=== PATIENT | female | born 1985 | race Two or more races ===

== ENCOUNTER 2024-10-10 22:14 | Inpatient (IN) | payer MEDICAID, SELFPAY ==
[2024-10-10 22:16] VITALS: BMI 26.9
[2024-10-10 23:44] VITALS: BP 130/81; PULSE 86; RESP 17; TEMP 36.5; O2SAT 96
[2024-10-11] VITALS (23 sets, daily range): BP systolic 90–138; BP diastolic 54–88; PULSE 76–113; RESP 14–20; TEMP 36.4–37.5; O2SAT 96–100
[2024-10-11 00:35] LABS: Basophils # (Auto) 0.1 Thou/mm3 (0.0-0.2); Basophils % (Auto) 0 % (0-2.5); Eosinophils # (Auto) 0.1 Thou/mm3 (0.0-0.5); Eosinophils % (Auto) 1 % (0-10); Immature Granulocytes % (Auto) 1 % (0-0); Immature Granulocytes Auto 0.09 Thou/mm3 (0.00-0.00); Lymphocytes # (Auto) 3.5 Thou/mm3 (1.0-4.8); Lymphocytes % (Auto) 20 % (10-50); Mean Corpuscular HGB Conc 31.5 g/dl (31.0-37.0); Mean Corpuscular Hemoglobin 25.5 pg (25.0-35.0); Mean Corpuscular Volume 81 fL (80-100); Monocytes # (Auto) 1.1 Thou/mm3 (0.0-0.8); Monocytes % (Auto) 6 % (0-12); Neutrophils % (Auto) 73 % (37-80); Nucleated Red Blood Cell # 0.02 Thou/mm3 (0.00-0.00); Nucleated Red Blood Cell % 0 /100 WBC (0); Platelet Count 342 Thou/mm3 (140-440); RDW Standard Deviation 54.2 fL (36.4-46.3); Red Blood Count 1.84 Miln/mm3 (4.00-5.20); White Blood Count 17.9 Thou/mm3 (3.6-11.0)
[2024-10-11 00:50] LABS: Alanine Aminotransferase 13 U/L (10-49); Albumin, Serum 2.7 gm/dL (3.5-5.0); Albumin/Globulin Ratio 0.8 (1.2-2.2); Alkaline Phosphatase 93 U/L (46-116); Anion Gap 11 (7-16); Aspartate Amino Transferase 39 U/L (0-34); BUN/Creatinine Ratio 6 Ratio (12-20); Bilirubin,Total 1.1 mg/dL (0.3-1.2); Blood Urea Nitrogen < 5 mg/dL (9-23); Calcium 7.6 mg/dL (8.3-10.6); Calcium (Corrected) 8.6 mg/dL (8.5-10.1); Carbon Dioxide 26.3 mMol/L (20.0-31.0); Chloride 97 mMol/L (98-107); Creatinine (Component) 0.8 mg/dL (0.6-1.3); Estimated Creatinine Clearance 97.6 mL/min (>60); Globulin 3.6 gm/dL (2.3-3.5); Glucose 117 mg/dL (74-106); Osmolality,Calculated 266 (275-295); Potassium 4.2 mMol/L (3.4-5.1); Sodium 134 mMol/L (136-145); Total Protein 6.3 gm/dL (5.7-8.2); eGFR > 60 See Note
[2024-10-11 00:57] LABS: Hemoglobin 4.7 g/dL (12.0-16.0)
[2024-10-11 00:58] LABS: Hematocrit 14.9 % (36.0-46.0)
[2024-10-11 01:03] LABS: INR 1.5 (0.9-1.3); Partial Thromboplastin Time 28.4 Seconds (22.0-36.0); Prothrombin Time 16.3 Seconds (9.0-12.2)
[2024-10-11] MEDS: SODIUM CHLORIDE 0.9% 1000 ML 1,000 ML 999 ML IV (01:22)
[2024-10-11 01:52] LABS: HCG Qualitative,Urine Negative
[2024-10-11 01:55] LABS: Alcohol, Blood Medical < 3.0 mg/dL (0-10.0)
[2024-10-11 03:17] LABS: Amphetamine/Methamp Scrn,U Negative (Negative); Barbiturate Screen,Urine Negative (Negative); Benzodiazepines Screen,Urine Negative (Negative); Benzoylecgonine Screen, Ur Negative (Negative); Fentanyl Screen,Urine Negative (Negative); Opiate Screen,Urine Positive (Negative); THC Screen,Urine Positive (Negative)
[2024-10-11 04:05] LABS: Path Review Blood Smear Sent to Pathologist
--- NOTE | 2024-10-11 05:28 | EDNOTE_ITS ---
ED Dizzyness RME/HPI General Chief Complaint: General Adult/Misc Complain Stated Complaint: SENT BY [facility] FOR FINGERSTICK HBG 4.0 Time Seen by Provider: 10/10/24 23:56 Arrival date/time: 10/10/24 22:14 38F with history of alcoholic cirrhosis and anemia 2/2 alcohol, drug use, GI bleed, and heavy menstrual cycles presents to ED with weakness, dizziness, and vague ab pain. Normal intake/output. Limitations: no limitations Related Data Previous Rx's ?Medication ?Instructions ?Recorded baclofen 20 mg tablet 20 mg PO BID PRN Muscle Spas ms 30 10/09/23 days #60 tabs ferrous sulfate 325 mg (65 mg 325 mg PO BID 30 days #6 0 tabs 10/09/23 iron) tablet (iron) folic acid 1 mg tablet 1 mg PO BID 30 days #60 tabs 10/09/23 lidocaine 5 % topical cream 1 applic top QDAY PRN hemo rrhoids 10/09/23 (RectaSmoothe) 30 days #1 tube lidocaine 5 % topical patch 1 patch top QDAY PRN abdom inal 10/09/23 pain 30 days #30 ea melatonin 1 mg tablet 0.5 mg (1/2 x 1 mg) PO HS AR N 10/09/23 sleep #15 tabs nystatin 100,000 unit/mL oral 5 ml PO TID 30 days #450 mL 10/09/23 suspension thiamine mononitrate (vit B1) 100 100 mg PO BID 1 inge h #60 tabs 10/09/23 mg tablet pantoprazole 40 mg tablet,delayed 40 mg PO QDAY 60 day s #60 tabs 10/10/23 release phenylephrine 0.25 %-mineral oil 1 applic AR QDAY PRN hemorrhoids 10/10/23 14 %-petrolatm 74.9 % rectal #57 grams ointment (Hemorrhoidal(phenyleph-min oil-petrolat)) simethicone 125 mg capsule 125 mg PO QDAY PRN abdomina l 10/10/23 distention 2 weeks #14 caps Allergies Allergy/AdvReac Type Severity Reaction Status Date / Time No Known Allergies Allergy Verified 10/10/24 22:15 Review of Systems Review of Systems Systems Reviewed: All systems reviewed, normal except as documented Constitutional Constitutional: Reports system reviewed and no additional complaints, except as documented, Denies fever(s), Denies headache(s) and Reports weakness ENT Ears, Nose, Mouth, and Throat: Reports as per HPI, Denies disequilibrium, Denies headache(s) and Reports vertigo Cardiovascular Cardiovascular: Reports system reviewed and no additional complaints, except as documented, Denies chest pain and Denies dyspnea Respiratory Respiratory: Reports system reviewed and no additional complaints, except as documented, Denies cough and Denies dyspnea Gastrointestinal Gastrointestinal: Reports system reviewed and no additional complaints, except as documented, Reports as per HPI, Reports abdominal pain, Denies nausea and Denies vomiting Neurologic Neurologic: Reports system reviewed and no additional complaints, except as documented, Reports as per HPI, Denies confusion, Denies disequilibrium, Denies headache(s), Reports vertigo and Reports weakness Psychiatric Psychiatric: Denies confusion Past Medical History Past Medical History NEUROLOGIC: Positive Migraine; Negative Neurological Disorders or Seizures CARDIAC: Positive Hypertension; Negative Cardiac Disorders, Angina, Atherosclerotic Heart Disease, Aneurysm or Congestive Heart Failure RESPIRATORY: Negative Chronic Obstructive Pulmonary Disease (COPD) or Asthma GASTROINTESTINAL: Positive Cirrhosis; Negative Gastrointestinal Disorders GENITOURINARY: Negative Genitourinary Disorders or Renal Disease MUSCULOSKELETAL: Negative Musculoskeletal Disorders ENDOCRINE: Negative Endocrine Disorders, Diabetes Mellitus Type 1 or Diabetes Mellitus Type 2 HEMATOLOGIC: Positive Anemia; Negative Sickle Cell Disease PSYCHO/SOCIAL: Positive Anxiety OTHER HISTORY: Positive Autoimmune Disease and Blood Transfusions; Negative Blood Transfusion Reaction, Anesthesia Reactions, Clostridium Difficile or Cancer Family History FAMILY HISTORY: Positive Family Cancer; Negative Family Psychiatric Problems, Family Respiratory Disorders, Family Cardiac Disorders or Family Gastrointestinal Problems Social History SMOKING STATUS: Never smoker SECOND HAND EXPOSURE: No SUBSTANCE USE: marijuana ED Exam General Limitations: Present no limitations General appearance: Present alert and in no apparent distress Head Head exam: Present atraumatic Eye Eye exam: Present normal appearance, PERRL and EOMI ENT ENT exam: Present normal exam, normal oropharynx and mucous membranes moist Neck Neck exam: Present normal inspection, full ROM and trachea midline Chest Chest inspection: Present normal inspection and symmetric chest wall rise Respiratory Respiratory exam: Present normal lung sounds bilaterally Cardiovascular Cardiovascular exam: Present regular rate, normal rhythm and normal heart sounds Abdominal Exam Abdominal exam: Present soft and normal bowel sounds Extremities Exam Extremities exam: Present normal inspection and full ROM Back Exam Back exam: Present normal inspection and full ROM Neurological Exam Neurological exam: Present alert, oriented X3 and CN II-XII intact Psychiatric Psychiatric exam: Present normal affect and normal mood Skin Skin exam: Present warm, dry, intact and normal color Course Quality Measures none Orders Category Date Time Status COVID-19 Screening Questionnaire NOW Care 10/11/24 04:47 Active Decision to Admit X1 Care 10/11/24 04:47 Completed Insert IV NOW Care 10/11/24 01:00 Active Occult Blood,Stool (Nursing) NOW Care 10/11/24 01:24 Active Consult to Gastroenterology Stat Cons 10/11/24 04:46 Ordered Alcohol, Blood Medical Stat Lab 10/11/24 00:19 Completed Antibody Identification Stat Lab 10/11/24 00:19 Results CBC Stat Lab 10/10/24 23:56 Completed CMP [Comprehensive Metabolic Panel] Stat Lab 10/10/24 23:56 Completed Drug Screen,Urine Stat Lab 10/11/24 01:37 Completed HCG Qualitative,Urine Stat Lab 10/11/24 01:37 Completed INR [Prothrombin Time with INR] Stat Lab 10/10/24 23:56 Completed PTT [Partial Thromboplastin Time] Stat Lab 10/10/24 23:56 Completed Path Review Blood Smear Stat Lab 10/11/24 00:19 Completed Type and Screen Stat Lab 10/10/24 23:56 Results prbc [Red Blood Cells] Stat Lab 10/11/24 00:19 Results Octreotide Acet Inj [SandoSTATIN Inj] Med 10/11/24 05:03 Discontinued 50 mcg IV X1 ONE Sodium Chloride 0.9% 1000 ml [Ns] 1,000 ml Med 10/11/24 01:00 Discontinued IV 999 mls/hr Vital Signs Vital signs: Vital Signs Temperature 97.7 F 10/10/24 23:44 Pulse Rate 86 10/10/24 23:44 Respiratory Rate 17 10/10/24 23:44 Blood Pressure 130/81 10/10/24 23:44 Pulse Oximetry (%) 96 10/10/24 23:44 Oxygen Delivery Method Room Air 10/10/24 23:44 O2 at 96% on RA and WNLs Dizziness MDM Narrative MDM Narrative:: 38F with history of alcoholic cirrhosis and anemia 2/2 alcohol, drug use, GI bleed, and heavy menstrual cycles presents to ED with weakness, dizziness, and vague ab pain. Normal intake/output. Physical exam reveals no ab tenderness. Patient is afebrile, calm, and alert. HgB 4.7. CMP mildly low sodium. Stool occult +. Started IVF and 3 units of blood. Spoke to Dr. Wiggins, GI who also recommend octreotide infusion. Spoke to Dr. Rodriguez, IM, who will admit. Patient data External records reviewed:: [facility] previous records Clinical information provided by:: patient Social determinants that could affect healthcare access:: alcohol use Patient has the following chronic illnesses:: history of alcoholic cirrhosis and anemia 2/2 alcohol, drug use, GI bleed, and heavy menstrual cycles How is presenting disease/condition affected by chronic disease/condition?: exacerbated by Evaluation data The following diagnostics were reviewed and interpreted by me:: lab results Lab and/or radiology exams considered but not ordered:: ordered Interpretation Summary: above Medications / Prescriptions Medications or Prescriptions considered but not ordered:: ordered Medication administrations:: Medication Administration History Discontinued Medications Sodium Chloride (Ns) 1,000 mls @ 999 mls/hr IV .Q1H1M ONE Stop: 10/11/24 02:00 Last Infusion: 10/11/24 02:27 Dose: Infused Documented By: Admin: 10/11/24 01:22 Dose: 999 mls/hr Documented By: LUCILA Octreotide Acetate (Octreotide Acet Inj 50 Mcg/Ml Vial) 50 mcg IV X1 ONE Stop: 10/11/24 05:04 above Consultations Consultation(s) initiated? (list below): Yes Diagnosis Dizziness Differential Diagnosis: adverse reaction to drug, benign paroxysmal positional vertigo, orthostatic hypotension, vertebral basilar insufficiency, cerebrovascular accident, acute vestibular neuronitis, transient cerebral ischemia and other (anemia) Most likely diagnosis given after review of the tests above:: anemia Admission Indicated Admission indicated?: indicated Admission Request Was there a request for admission?: Yes Admission Attestation Admission request attestation: Discussed case with [Dr. Rodriguez] from Hospitalist service regarding admission. Discussed patients ED course, exam findings, labs, and radiology results. The Hospitalist [agrees] to accept the patient for admission. Disposition Plan Disposition Plan: Admit Discharge Plan Plan Patient Disposition: Admit Acute Care w/in Hospital Prescriptions/Referrals Prescriptions/Med Rec: No Action baclofen 20 mg tablet 20 mg PO BID PRN (Reason: Muscle Spasms) 30 Days Qty: 60 1RF nystatin 100,000 unit/mL Suspension 5 ml PO TID 30 Days Qty: 450 1RF lidocaine [RectaSmoothe] 5 % Cream 1 applic top QDAY PRN (Reason: hemorrhoids) 30 Days Qty: 1 3RF lidocaine 5 % Adhesive Patch,Medicated 1 patch top QDAY PRN (Reason: abdominal pain) 30 Days Qty: 30 3RF folic acid 1 mg Tablet 1 mg PO BID 30 Days Qty: 60 3RF thiamine mononitrate (vit B1) 100 mg Tablet 100 mg PO BID 30 Days Qty: 60 3RF ferrous sulfate [iron] 325 mg (65 mg iron) Tablet 325 mg PO BID 30 Days Qty: 60 3RF melatonin 1 mg tablet 0.5 mg PO HS PRN (Reason: sleep) Qty: 15 3RF pantoprazole 40 mg tablet,delayed release (DR/EC) 40 mg PO QDAY 60 Days Qty: 60 1RF simethicone 125 mg capsule 125 mg PO QDAY PRN (Reason: abdominal distention) 14 Days Qty: 14 1RF Hemorrhoidal(PE-min oil-gwendolyn) 0.25-14-74.9 % ointment 1 applic AR QDAY PRN (Reason: hemorrhoids) Qty: 57 3RF Referrals: Darrius Faria PA-C [Primary Care Provider] - In 1 week Problem List Clinical Impression: Anemia Patient/Caregiver Discharge Instructions Print Language: Slovenian Stand Alone Forms: Vee Award Info., Patient Portal Info Letter
[2024-10-11] MEDS: OCTREOTIDE ACET INJ 50 mCg/ML VIAL IV (05:37)
--- NOTE | 2024-10-11 05:48 | ESHP_ITS ---
Documentation for date of: 10/11/24 HPI History of Present Illness Chief complaint: Anemia History of present illness: A 37-year-old female with significant past medical history of upper GI bleed secondary to H. pylori, gastritis, anemia post blood transfusions secondary to menorrhagia, alcohol use disorder, alcoholic liver disease presented to the hospital with chief complaints of low hemoglobin noted on labs. Patient reported that she was apparently normal 2 to 3 weeks ago, then started to notice mild dizziness and on and off bleeding noted while having bowel movement. On the day of admission, patient went to see her primary care doctor where she found to have low hemoglobin on fingerstick for which she was followed to the hospital for further evaluation and management. Also reported that she is having mild abdominal pain, mainly in the epigastric and right upper quadrant area especially when she eats meals that have beef in it. Endorsed that she had heavy menstrual period's till last month that stopped as of now and patient is currently on hormonal implant. ED course: - Vitals are stable at the time of admission. - Labs are significant for WBC 17.9, Hb 4.7, INR 1.5, sodium 134, AST 39, albumin 2.7 - Urine tested positive for opiates and marijuana - Patient was started on octreotide drip Past medical history: Upper GI bleed, anemia, blood transfusions, alcohol use disorder, alcoholic liver disease Past surgical history: Appendectomy Social history: 1-2 tall beers every day, stopped 2 weeks ago, smokes marijuana, denies tobacco and other illicit drug abuse Allergies: NKDA Review of Systems Review of Systems Systems Reviewed: All systems reviewed, normal except as documented Past Medical History Past Medical History NEUROLOGIC: Positive Migraine; Negative Neurological Disorders or Seizures CARDIAC: Positive Hypertension; Negative Cardiac Disorders, Angina, Atherosclerotic Heart Disease, Aneurysm or Congestive Heart Failure RESPIRATORY: Negative Chronic Obstructive Pulmonary Disease (COPD) or Asthma GASTROINTESTINAL: Positive Cirrhosis; Negative Gastrointestinal Disorders GENITOURINARY: Negative Genitourinary Disorders or Renal Disease MUSCULOSKELETAL: Negative Musculoskeletal Disorders ENDOCRINE: Negative Endocrine Disorders, Diabetes Mellitus Type 1 or Diabetes Mellitus Type 2 HEMATOLOGIC: Positive Anemia; Negative Sickle Cell Disease PSYCHO/SOCIAL: Positive Anxiety OTHER HISTORY: Positive Autoimmune Disease and Blood Transfusions; Negative Blood Transfusion Reaction, Anesthesia Reactions, Clostridium Difficile or Cancer Family History FAMILY HISTORY: Positive Family Cancer; Negative Family Psychiatric Problems, Family Respiratory Disorders, Family Cardiac Disorders or Family Gastrointestinal Problems Social History SMOKING STATUS: Never smoker SECOND HAND EXPOSURE: No SUBSTANCE USE: marijuana Exam Vital Signs Temp Pulse Resp BP Pulse Ox O2 Del Method 98.4 F 101 H 16 112/79 100 Room Air 10/11/24 05:13 10/11/24 05:13 10/11/24 05:13 10/11/24 05:13 10/11/24 05:13 10/11/24 01:17 Narrative Exam General: Awake. HEENT: Normocephalic, atraumatic, mucous membranes moist. healed rash from acne with erosions on forehead Heart: Regular rate and rhythm, no murmurs. Lungs: Clear to auscultation with no wheezing or crackles. Abdomen: Soft, nondistended, mild tenderness in upper abdomen, positive bowel sounds. ?No guarding or rebound tenderness. Neurologic: Alert and oriented x3, no gross neurological deficit, and patient able to move all 4 extremities. Extremities: No edema. Skin: No rash or ecchymoses. Results: Labs 10/11/24 10:40 10/11/24 08:32 Labs: Short CBC 10/11/24 Range/Units 00:19 WBC 17.9 H (3.6-11.0) Thou/mm3 Hgb 4.7 L* (12.0-16.0) g/dL Hct 14.9 L* (36.0-46.0) % Plt Count 342 (140-440) Thou/mm3 BMP 10/11/24 00:19 Sodium 134 L Potassium 4.2 Chloride 97 L Carbon Dioxide 26.3 BUN < 5 L Creatinine 0.8 Glucose 117 H Calcium 7.6 L Liver Function 10/11/24 Range/Units 00:19 Total Bilirubin 1.1 (0.3-1.2) mg/dL AST 39 H (0-34) U/L ALT 13 (10-49) U/L Alkaline Phosphatase 93 (46-116) U/L Albumin 2.7 L (3.5-5.0) gm/dL Quality Measures Quality Measures none Medications Home Medications and Allergies Allergies Allergy/AdvReac Type Severity Reaction Status Date / Time No Known Allergies Allergy Verified 10/10/24 22:15 Visit Medications Acetaminophen (Acetaminophen 325 Mg Tablet) 650 mg PO Q6H PRN PRN Reason: Fever >101.5 Stop: 11/10/24 05:41 Ondansetron HCl (Ondansetron Inj 2 Mg/Ml Inj 2 Ml) 4 mg IVP Q6H PRN; Protocol PRN Reason: NAUSEA OR VOMITING Stop: 11/10/24 05:41 Pantoprazole Sodium (Pantoprazole Inj 40 Mg Vial) 40 mg IVP QDAY BRIANA Stop: 11/10/24 08:59 Discontinued Medications Sodium Chloride (Ns) 1,000 mls @ 999 mls/hr IV .Q1H1M ONE Stop: 10/11/24 02:00 Last Infusion: 10/11/24 02:27 Dose: Infused Octreotide Acetate (Octreotide Acet Inj 50 Mcg/Ml Vial) 50 mcg IV X1 ONE Stop: 10/11/24 05:04 Last Admin: 10/11/24 05:37 Dose: 50 mcg Assessment & Plan Plan A 37-year-old female with significant past medical history of upper GI bleed secondary to H. pylori, gastritis, anemia post blood transfusions secondary to menorrhagia, alcohol use disorder, alcoholic liver disease presented to the hospital with chief complaints of low hemoglobin noted on labs. # Anemia # Likely multifactorial - menorrhagia [resolved] and GI bleed [gastritis 2/2 Alcohol and NSAIDs versus hemorrhoids] - patient had history of anemia in 2023 for which patient received blood transfusion and was prescribed iron supplementation - Presented with complaints of bleeding per rectum on and off since 2 to 3 months and menorrhagia that resolved 1 month ago - Endorsed that she is not compliant with iron supplements - Mild abdominal pain noted especially after having fatty meals like beef - Also endorsed that she is taking NSAIDs for her back pain - Vitals at the time of admission are stable - labs showed hemoglobin of 4.7 - Tested positive for stool occult blood Plan - 80 Mg of IV pantoprazole is given - Started on octreotide drip -1 PRBC transfusion is given, 2 more PRBC transfusion ordered - Iron panel, vitamin B12 is ordered, follow-up with results - Dr. Wiggins was consulted, will appreciate his recommendations - Patient was kept on n.p.o in view of anticipation of upper GI endoscopy. - Gallbladder ultrasound ordered to rule out gallstones # Leukocytosis - Patient denies burning micturition, shortness of breath, cough - Likely reactive Plan - Follow-up on gallbladder ultrasound and urine analysis # Chronic alcohol use disorder # Alcohol liver disorder - Patient reported that she cut down her alcohol intake to 1-2 tall beer cans per day - Last alcohol drink was 2 weeks ago - Labs showed hypoalbuminemia and mildly elevated AST, INR 1.5 Plan - Recommended to monitor LFTs Hospital Maintenance: Dispo: medsurg DVT ppx: scd GI ppx: Pantoprazole Diet : NPO IV lines: peripheral Code status:FULL Patient plan of care was discussed with the attending physician, Dr. Micahel Leigh, PGY1 Attending Provider Attestation/Addendum I have examined the patient, reviewed labs and imaging findings, discussed the case with the resident(s), and reviewed entered orders. I agree with the plan of care as outlined in this note, with these additional summaries/recommendations: After examination of the patient and review of the clinical data, I feel that this patient needs admission to the hospital for further treatment and evaluation. Patient is a 37-year-old female with a medical history of GI bleed, H. pylori, gastritis, transfusion dependent anemia, menorrhagia, alcohol use disorder, alcohol liver disease who presents to [facility] emergency department on 10/10/2024 with chief complaint of dizziness and blood in stool. Patient seen at bedside. FOBT positive at bedside. Most likely upper GI bleed. Start IV Protonix, IV octreotide, and IV Rocephin. Patient will receive 1 unit PRBCs and follow-up posttransfusion H&H. Gastroenterology consulted, recommendations appreciated. N.p.o. and avoid all chemical anticoagulation. Leukocytosis present and most likely reactive and will monitor for now. Patient appears to have some underlying liver disease from alcohol use with mild coagulopathy which we will monitor now and patient should follow-up outpatient for further workup and management. Patient updated on the plan and in agreement. All questions answered to satisfaction. Dr. Michael MD
--- NOTE | 2024-10-11 05:57 | XR_ITS ---
Examination: Abdomen sonogram, Limited Date and time of exam: October 11, 2024 0713 hours INDICATIONS: Onset of right upper abdominal pain beginning one month ago Technique: Real-time boothe scale transabdominal sonographic images of the upper abdomen obtained. Findings: Gallbladder sludge versus small stones Gallbladder wall 0.52 cm with edema Common bile duct 0.3 cm Pancreatic head 2.2 cm Liver 21.1 cm fatty infiltration irregular contour Normal hepatopedal portal venous flow Patent IVC IMPRESSION: Acute calculus cholecystitis pattern, consider HIDA scan or MRCP follow-up Moderate hepatomegaly fatty liver, suspect primary hepatocellular disease
[2024-10-11] MEDS: PANTOPRAZOLE INJ 40 MG VIAL 80 MG IVP (06:53)
[2024-10-11 07:21] LABS: Ferritin 3 ng/mL (7.3-270.7); Iron 5 mcg/dL (50-170); Percent Iron Saturation 1 % (20-55); Total Iron Binding Capacity 264 mcg/dL (250-425); Unsaturated Iron Binding 259 (225-295)
[2024-10-11 09:16] LABS: Alanine Aminotransferase 14 U/L (10-49); Albumin, Serum 2.7 gm/dL (3.5-5.0); Albumin/Globulin Ratio 0.7 (1.2-2.2); Alkaline Phosphatase 97 U/L (46-116); Anion Gap 13 (7-16); Aspartate Amino Transferase 38 U/L (0-34); BUN/Creatinine Ratio 7 Ratio (12-20); Bilirubin,Total 2.6 mg/dL (0.3-1.2); Blood Urea Nitrogen < 5 mg/dL (9-23); Calcium 7.5 mg/dL (8.3-10.6); Calcium (Corrected) 8.5 mg/dL (8.5-10.1); Carbon Dioxide 25.5 mMol/L (20.0-31.0); Chloride 99 mMol/L (98-107); Creatinine (Component) 0.7 mg/dL (0.6-1.3); Estimated Creatinine Clearance 111.5 mL/min (>60); Globulin 3.7 gm/dL (2.3-3.5); Glucose 111 mg/dL (74-106); Osmolality,Calculated 272 (275-295); Potassium 3.4 mMol/L (3.4-5.1); Sodium 137 mMol/L (136-145); Total Protein 6.4 gm/dL (5.7-8.2); eGFR > 60 See Note
[2024-10-11] MEDS: OCTREOTIDE ACET INJ 1,000 MCG in SODIUM CHLORIDE 0.9% 100 ML 5.1 MCG IV (10:01)
[2024-10-11 11:07] LABS: Basophils # (Auto) 0.1 Thou/mm3 (0.0-0.2); Basophils % (Auto) 1 % (0-2.5); Eosinophils # (Auto) 0.1 Thou/mm3 (0.0-0.5); Eosinophils % (Auto) 1 % (0-10); Hematocrit 22.8 % (36.0-46.0); Immature Granulocytes % (Auto) 1 % (0-0); Immature Granulocytes Auto 0.05 Thou/mm3 (0.00-0.00); Lymphocytes # (Auto) 1.8 Thou/mm3 (1.0-4.8); Lymphocytes % (Auto) 18 % (10-50); Mean Corpuscular HGB Conc 34.6 g/dl (31.0-37.0); Mean Corpuscular Hemoglobin 28.5 pg (25.0-35.0); Mean Corpuscular Volume 82 fL (80-100); Monocytes # (Auto) 0.6 Thou/mm3 (0.0-0.8); Monocytes % (Auto) 6 % (0-12); Neutrophils # (Auto) 7.4 Thou/mm3 (1.8-7.7); Neutrophils % (Auto) 74 % (37-80); Nucleated Red Blood Cell # 0.03 Thou/mm3 (0.00-0.00); Nucleated Red Blood Cell % 0 /100 WBC (0); Platelet Count 235 Thou/mm3 (140-440); RDW Standard Deviation 51.2 fL (36.4-46.3); Red Blood Count 2.77 Miln/mm3 (4.00-5.20)
[2024-10-11 11:08] LABS: Hemoglobin 7.9 g/dL (12.0-16.0)
--- NOTE | 2024-10-11 11:22 | PD.IMCONS ---
HPI Data of Consult Requesting Physician: Blas Rodriguez MD Primary Care Provider: Darrius Faria PA-C Consult Narrative Reason for consult: H/H 4.7/14.9 History of present illness: 38 years old female evaluated request of the ER team as well as the internal medicine team for low hemoglobin hematocrit 4.7 and 14.9 She has been transfused hemoglobin hematocrit is now 7.9 and 22.8 Patient has a history of previous GI bleed and on 10/08/2023 she underwent upper endoscopy that showed esophagitis and gastritis 10/09/2023 she underwent colonoscopy which showed internal hemorrhoids otherwise normal colonoscopy to see Patient has drink alcohol She has been feeling weak and dizzy Has seen off-and-on blood in the stool cc:: cc: Blas Rodriguez MD Review of Systems Review of Systems Systems Reviewed: All systems reviewed, normal except as documented Past Medical History Surgical History OTHER SURGICAL HX: As in the history of present illness Meds Home Medications and Allergies Allergies Allergy/AdvReac Type Severity Reaction Status Date / Time No Known Allergies Allergy Verified 10/10/24 22:15 Exam Vital Signs Temp Pulse Resp BP Pulse Ox O2 Del Method 98.1 F 86 16 111/63 98 Room Air 10/11/24 08:25 10/11/24 08:25 10/11/24 08:25 10/11/24 08:25 10/11/24 08:25 10/11/24 08:25 Constitutional Comments: Alert oriented Routine Respiratory Exam Comments: Normal to auscultation Routine Abdominal Exam Comments: Positive bowel sounds Results Labs 10/11/24 10:40 10/11/24 08:32 Labs: Short CBC 10/11/24 10/11/24 Range/Units 00:19 10:40 WBC 17.9 H 10.0 D (3.6-11.0) Thou/mm3 Hgb 4.7 L* 7.9 L D (12.0-16.0) g/dL Hct 14.9 L* 22.8 L (36.0-46.0) % Plt Count 342 235 D (140-440) Thou/mm3 BMP 10/11/24 10/11/24 00:19 08:32 Sodium 134 L 137 Potassium 4.2 3.4 D Chloride 97 L 99 Carbon Dioxide 26.3 25.5 BUN < 5 L < 5 L Creatinine 0.8 0.7 Glucose 117 H 111 H Calcium 7.6 L 7.5 L Liver Function 10/11/24 10/11/24 Range/Units 00:19 08:32 Total Bilirubin 1.1 2.6 H D (0.3-1.2) mg/dL AST 39 H 38 H (0-34) U/L ALT 13 14 (10-49) U/L Alkaline Phosphatase 93 97 (46-116) U/L Albumin 2.7 L 2.7 L (3.5-5.0) gm/dL Assessment and Plan Additional Assessment & Plan Additional Plan: # Acute posthemorrhagic anemia Continue octreotide infusion Continue IV Protonix Clear liquid diet Consent obtained for fiberoptic esophagogastroduodenoscopy with possible biopsy possible therapeutic intervention under intravenous moderate sedation Thank you very much for the opportunity to participate in care of this patient Other medical problems include # Chronic liver disease secondary to alcohol patient was drinking actively up until 2 weeks ago her favorite drink is ice tea follow-up alcohol
[2024-10-11] MEDS: PIPER/TAZO 3.375 GM PREMIX 3.375 GM/50 ML BAG IV ×2 (11:46→21:16)
[2024-10-11] MEDS: PHYTONADIONE INJ 10 MG/ML AMP IM (11:46)
[2024-10-11] MEDS: POTASSIUM CHL 10 mEq IVPB 10 MEQ/100 ML BAG 100 MEQ IV (11:46)
--- NOTE | 2024-10-11 12:35 | SUR.PHASEI ---
1235: Pt. AAOx4, vitals stable, breathing unlabored, no complaint of pain or nausea, no dressing in place, no active bleed noted, report received from Viviana MAYER.
--- NOTE | 2024-10-11 13:00 | SUR.PHASEI ---
1300: Pt. AAOx4, vitals stable, breathing unlabored, no complaint of pain or nausea, no dressing in place, no active bleed noted, pt. tolerated sips of water well, report given to floor nurse prior to transfer to room 352.
[2024-10-11] MEDS: ACETAMINOPHEN 325 MG TABLET 650 MG PO (14:00)
[2024-10-11] MEDS: PANTOPRAZOLE INJ 40 MG VIAL IVP (14:01)
--- NOTE | 2024-10-11 14:27 | ESPR_ITS ---
<Statement entered by Saravanan Smith MD - 10/12/24 07:26> I discussed with and supervised the internal control consultant physician involved in the care of this patient. Patient assessment and plan was discussed with entire medicine team, including my attending. I agree with the assessment and plan as documented by internal control consultant doctor. Patient care was discussed with my attending physician Dr.Bishwakarma Saravanan Smith, PGY-2 Documentation for date of: 10/11/24 Subjective Subjective Interval history: Patient was seen and examined by the bedside. No acute overnight events. Patient reports feeling better, but reports RUQ pain. Continues to consume alcohol, but a few months ago cut down on the amount of alcohol. Last drink was a few weeks ago. Patient reports that in the last few months she has been experiencing bloody stools. She also reports nausea and vomiting that are provoked by fatty food. GI consulted, she underwent EGD that showed grade I varices, no signs of bleeding. Octreotide drip discontinued. Pending sigmoidoscopy. General surgery was consulted for possible acute cholecystitis. Exam Vital Signs Temp Pulse Resp BP Pulse Ox O2 Del Method O2 Flow Rate 97.8 F 90 19 122/83 100 Room Air 3 10/11/24 12:58 10/11/24 12:58 10/11/24 12:58 10/11/24 12:58 10/11/24 12:58 10/11/24 11:58 10/11/24 12:30 Narrative Exam Gen: Well-developed and well-nourished. HEENT: NCAT, PERRLA, EOMI, MMM, anicteric conjunctivae. CVS: normal S1 and S2. RRR. No M/R/G. Resp: CTA B/L. No rhonchi, rales, crackles or wheezing. Abd: soft, mild RUQ tenderness, distended (due to body habitus). BS+ in all 4 quadrants. MSK: Good ROM in BUE & BLE. No edema or rash. Neuro: CN II-XII grossly intact. Moves all 4 extremities. Alert and oriented x3. Psych: appropriate mood and affect. Objective Labs 10/11/24 10:40 10/11/24 08:32 Labs: Laboratory Results - last 24 hr 10/11/24 10/11/24 10/11/24 00:19 01:37 08:32 WBC 17.9 H RBC 1.84 L* Hgb 4.7 L* Hct 14.9 L* MCV 81 MCH 25.5 MCHC 31.5 RDW Std Deviation 54.2 H Plt Count 342 Neut % (Auto) 73 Lymph % (Auto) 20 [place] % (Auto) 6 Eos % (Auto) 1 Baso % (Auto) 0 Neut # (Auto) 13.0 H Lymph # (Auto) 3.5 [place] # (Auto) 1.1 H Eos # (Auto) 0.1 Baso # (Auto) 0.1 Immature Gran # (Auto) 0.09 H Absolute Nucleated RBC 0.02 H Immature Gran % 1 H Nucleated RBC % 0 Smear Path Review Sent to Pathologist PT 16.3 H INR 1.5 H APTT 28.4 Sodium 134 L 137 Potassium 4.2 3.4 D Chloride 97 L 99 Carbon Dioxide 26.3 25.5 Anion Gap 11 13 BUN < 5 L < 5 L Creatinine 0.8 0.7 Estim Creat Clear Calc 97.6 111.5 eGFR > 60 > 60 BUN/Creatinine Ratio 6 L 7 L Glucose 117 H 111 H Calculated Osmolality 266 L 272 L Calcium 7.6 L 7.5 L Corrected Calcium 8.6 8.5 Iron 5 L TIBC 264 Iron Saturation 1 L Unsat Iron Binding 259 Ferritin 3 L Total Bilirubin 1.1 2.6 H D AST 39 H 38 H ALT 13 14 Alkaline Phosphatase 93 97 Total Protein 6.3 6.4 Albumin 2.7 L 2.7 L Globulin 3.6 H 3.7 H Albumin/Globulin Ratio 0.8 L 0.7 L Urine HCG, Qual Negative Urine Opiates Screen Positive A Urine Fentanyl Screen Negative Ur Barbiturates Screen Negative U Amphetamin/Meth Scrn Negative U Benzodiazepines Scrn Negative U Cocaine Metab Screen Negative U Marijuana (THC) Screen Positive A Ethyl Alcohol < 3.0 Blood Type O Positive Antibody Screen POSITIVE Antibody Identification Cold Antibody Crossmatch See Detail Blood Bank Wristband ID Yes 10/11/24 10:40 WBC 10.0 D RBC 2.77 L Hgb 7.9 L D Hct 22.8 L MCV 82 MCH 28.5 MCHC 34.6 RDW Std Deviation 51.2 H Plt Count 235 D Neut % (Auto) 74 Lymph % (Auto) 18 [place] % (Auto) 6 Eos % (Auto) 1 Baso % (Auto) 1 Neut # (Auto) 7.4 Lymph # (Auto) 1.8 [place] # (Auto) 0.6 Eos # (Auto) 0.1 Baso # (Auto) 0.1 Immature Gran # (Auto) 0.05 H Absolute Nucleated RBC 0.03 H Immature Gran % 1 H Nucleated RBC % 0 Smear Path Review PT INR APTT Sodium Potassium Chloride Carbon Dioxide Anion Gap BUN Creatinine Estim Creat Clear Calc eGFR BUN/Creatinine Ratio Glucose Calculated Osmolality Calcium Corrected Calcium Iron TIBC Iron Saturation Unsat Iron Binding Ferritin Total Bilirubin AST ALT Alkaline Phosphatase Total Protein Albumin Globulin Albumin/Globulin Ratio Urine HCG, Qual Urine Opiates Screen Urine Fentanyl Screen Ur Barbiturates Screen U Amphetamin/Meth Scrn U Benzodiazepines Scrn U Cocaine Metab Screen U Marijuana (THC) Screen Ethyl Alcohol Blood Type Antibody Screen Antibody Identification Crossmatch Blood Bank Wristband ID Quality Measures Quality Measures VTE prophylaxis Assessment & Plan Assessment Current Active Medications: Generic Name Dose Route Start Last Admin Trade Name Freq PRN Reason Stop Dose Admin Acetaminophen 650 mg 10/11/24 05:42 10/11/24 14:00 Acetaminophen 325 Mg Tablet PO 11/10/24 05:41 650 mg Q6H PRN Administration Fever >101.5 Piperacillin/Tazobactam/Dextrose 3.375 gm in 50 mls @ 12.5 mls/hr 10/11/24 22:00 Zosyn IV 10/18/24 21:59 Q8HR BRIANA Lidocaine/Prilocaine 0 gm 10/11/24 09:05 Lidocaine/Prilocaine Cr 5gm 5 Gm Tube TOP 11/10/24 08:59 QDAY PRN for pain control before blood draw Ondansetron HCl 4 mg 10/11/24 05:42 Ondansetron Inj 2 Mg/Ml Inj 2 Ml IVP 11/10/24 05:41 Q6H PRN NAUSEA OR VOMITING Protocol Pantoprazole Sodium 40 mg 10/11/24 13:30 10/11/24 14:01 Pantoprazole Inj 40 Mg Vial IVP 11/10/24 13:29 40 mg QDAY BRIANA Administration Plan The patient is a 37-year-old female with significant past medical history of upper GI bleed secondary to H. pylori, gastritis, anemia post blood transfusions secondary to menorrhagia, alcohol use disorder, alcoholic liver disease presented to the hospital with chief complaints of low hemoglobin noted on labs. #Severe chronic posthemorrhagic anemia #GI bleed #History of menorrhagia #History of alcohol abuse #History of NSAID use #HIstory of hemorrhoids Patient has a history of anemia and in 2023 patient was admitted, received blood transfusion and was prescribed iron supplementation. GI work up then did not reveal the source of bleeding, Patient reports bleeding per rectum on and off since 2 to 3 months and menorrhagia that resolved 1 month ago Endorsed that she is not compliant with iron supplements Mild abdominal pain noted especially after having fatty meals like beef Also endorsed that she is taking NSAIDs for her back pain Vitals at the time of admission are stable In the ED labs showed hemoglobin of 4.7 Tested positive for stool occult blood 10/11/24: GI consulted, she underwent EGD that showed grade I varices, no signs of bleeding. Octreotide drip discontinued, pantoprazole dose decreased tp 40 mg. Pending colonoscopy. Post transfusion H&H: Hgb 7.9, HCT 22.8% Iron panel showed signs of severe iron deficiency. Plan: - Pantoprazole 40 mg qday - Octreotide drip discontinued - 2 unit of pRBC transfused - Vitamin B12 pending - Dr. Wiggins was consulted, appreciate his recommendations - Sigmoidoscopy pending - monitor CBC, transfuse of Hgb <7 #Acute calculous cholecystitis Patient reports RUQ pain, nausea, vomiting after fatty food. Initial labs showed WBC count of 17.9. Bilirubin went up to 2.6 mg/dl. Plan: - Zosyn 3.375 mg q6hr 10/11-current - General surgery is consulted - HIDA scan ordered #Chronic alcohol use disorder #Alcohol liver disorder - Patient reported that she cut down her alcohol intake to 1-2 tall beer cans per day - Last alcohol drink was 2 weeks ago - Labs showed hypoalbuminemia and mildly elevated AST, INR 1.5 Plan: - Will monitor LFTs Health maintenance: FEN: Clear liquid diet DVT prophylaxis: SCDs GI prophylaxis: pantoprazole 40 mg qday Dispo: med tele CODE STATUS: Full code Plan of care discussed with attending Dr. Cuevas, PGY-[address] Smith. Teresa Mitchell MD, PGY 1. Attending Provider Attestation/Addendum I attest that I was physically present for the evaluation, physical examination, lab and imaging review of the patient with the residents. I discussed the case with the residents and agree with the findings and plans of care as documented above. Patient is a 37 years old female with past medical history of upper GI bleed secondary to H. pylori, gastritis and anemia with blood transfusion secondary to menorrhagia, alcohol use disorder, alcoholic liver disease who presented to the ED with complaint of low hemoglobin. Was found to have hemoglobin of 4.7, admitted overnight for acute anemia in setting of menorrhagia, GI bleed. At bedside today, patient complained of abdominal pain mostly around upper abdomen. She also has tenderness around epigastrium. Lab results were significant for WBC of 17.9 last night. Also noted to have worsening bilirubin 2.6 this morning. Gallbladder ultrasound was obtained this morning, shows acute calculus cholecystitis pattern. With elevated WBC, elevated bilirubin and concern for cholecystitis and cholelithiasis, we will obtain general surgery consult and start patient on IV Zosyn. Gastroenterology following, recommended Protonix 40 mg IV daily. Underwent EGD with GI, shows grade 1 esophageal varices, gastric erythema. Patient is planned for sigmoidoscopy. Patient received total of 3 units PRBC transfusion with improvement in hemoglobin to 7.9. La Cuevas MD
--- NOTE | 2024-10-11 14:35 | XR_ITS ---
Examination: SAQIB, hepatobiliary radioisotope scan Gallbladder ejection fraction study. Date and time of exam: October 12, 2024 1418 hours INDICATIONS: Alcoholic cirrhosis history gastrointestinal bleeding abdominal pain Technique: 6 mCi of 99M Hepatolite administered. Serial imaging then obtained from immediate through 60 minutes. 1. mcg selective catheter Kinevac administered for gallbladder ejection fraction study. Findings: Radioisotope activity within the liver is reasonably homogenous. Common bile duct small bowel activity noted Impression: No gallbladder activity noted
--- NOTE | 2024-10-11 14:37 | PD.SURCONS ---
Review of Systems Constitutional Constitutional: Denies headache(s) and Reports weakness ENT Ears, Nose, Mouth, and Throat: Denies disequilibrium, Denies headache(s) and Reports vertigo Neurologic Neurologic: Reports system reviewed and no additional complaints, except as documented, Reports as per HPI, Denies confusion, Denies disequilibrium, Denies headache(s), Reports vertigo and Reports weakness Psychiatric Psychiatric: Denies confusion Meds Home Medications and Allergies Allergies Allergy/AdvReac Type Severity Reaction Status Date / Time No Known Allergies Allergy Verified 10/10/24 22:15 Exam Vital Signs Temp Pulse Resp BP Pulse Ox O2 Del Method O2 Flow Rate 97.8 F 90 19 122/83 100 Room Air 3 10/11/24 12:58 10/11/24 12:58 10/11/24 12:58 10/11/24 12:58 10/11/24 12:58 10/11/24 11:58 10/11/24 12:30 Results Results: Imaging Additional studies: Impression: Patient was seen for acute cholecystitis Assessment & Plan Plan Plan: Patient will get HIDA scan. I am not sure patient has any gallstones but may have sludge. We shall also wait for the anemia to be corrected. Patient does not seem to have any significant pain in the right upper quadrant
[2024-10-11] MEDS: POTASSIUM CHLORIDE 10% 20 MEQ/15 ML UDC 10 MEQ PO (16:17)
[2024-10-11 20:16] LABS: Collection Type, Urine Clean Catch
[2024-10-11 20:35] LABS: Bilirubin,Urine Negative (Negative); Blood,Urine Trace (Negative); Clarity,Urine Turbid (Clear/Hazy); Glucose, Urine Negative (Negative); Ketones,Urine Negative (Negative); Leukocyte Esterase,Urine Positive (Negative); Nitrite,Urine Negative (Negative); PH,Urine 6.5 (5.0-7.0); Protein,Urine Negative (Neg - Trace); RBC,Urine 1 /hpf (0-3); Specific Gravity,Urine 1.017 (1.001-1.035); Squamous Epithelial Cell,Urine 4 /hpf (0-5); Urobilinogen,Urine Negative mg/dL (0.0-1.0); WBC,Urine 504 /hpf (0-5)
[2024-10-11 20:36] LABS: Color,Urine Amber (Lt Yel-Yel)
[2024-10-11] MEDS: HYDROcodone/APAP 5/325 TABLET 1 TAB PO (21:36)
[2024-10-11] MEDS: MELATONIN 3 MG TABLET PO (22:20)
[2024-10-11 23:14] LABS: Vitamin B12 868 pg/mL (211-911)
[2024-10-12] VITALS (18 sets, daily range): BP systolic 98–133; BP diastolic 58–90; PULSE 66–101; RESP 12–18; TEMP 36.1–36.7; O2SAT 93–100
[2024-10-12] MEDS: PIPER/TAZO 3.375 GM PREMIX 3.375 GM/50 ML BAG IV ×3 (05:14→22:10)
[2024-10-12] MEDS: HYDROcodone/APAP 5/325 TABLET 1 TAB PO ×2 (05:21→16:11)
[2024-10-12 05:26] LABS: Basophils # (Auto) 0.1 Thou/mm3 (0.0-0.2); Basophils % (Auto) 1 % (0-2.5); Eosinophils # (Auto) 0.2 Thou/mm3 (0.0-0.5); Eosinophils % (Auto) 3 % (0-10); Hematocrit 22.2 % (36.0-46.0); Immature Granulocytes % (Auto) 0 % (0-0); Immature Granulocytes Auto 0.02 Thou/mm3 (0.00-0.00); Lymphocytes # (Auto) 1.9 Thou/mm3 (1.0-4.8); Lymphocytes % (Auto) 26 % (10-50); Mean Corpuscular HGB Conc 32.4 g/dl (31.0-37.0); Mean Corpuscular Hemoglobin 27.9 pg (25.0-35.0); Mean Corpuscular Volume 86 fL (80-100); Monocytes # (Auto) 0.4 Thou/mm3 (0.0-0.8); Monocytes % (Auto) 5 % (0-12); Neutrophils # (Auto) 4.8 Thou/mm3 (1.8-7.7); Neutrophils % (Auto) 65 % (37-80); Nucleated Red Blood Cell % 0 /100 WBC (0); Platelet Count 214 Thou/mm3 (140-440); RDW Standard Deviation 53.9 fL (36.4-46.3); Red Blood Count 2.58 Miln/mm3 (4.00-5.20); White Blood Count 7.3 Thou/mm3 (3.6-11.0)
[2024-10-12 06:06] LABS: Hemoglobin 7.2 g/dL (12.0-16.0)
[2024-10-12 06:07] LABS: Alanine Aminotransferase 10 U/L (10-49); Albumin, Serum 2.2 gm/dL (3.5-5.0); Albumin/Globulin Ratio 0.7 (1.2-2.2); Alkaline Phosphatase 78 U/L (46-116); Anion Gap 11 (7-16); Aspartate Amino Transferase 32 U/L (0-34); BUN/Creatinine Ratio 6 Ratio (12-20); Bilirubin,Total 2.6 mg/dL (0.3-1.2); Blood Urea Nitrogen < 5 mg/dL (9-23); Calcium 7.3 mg/dL (8.3-10.6); Calcium (Corrected) 8.7 mg/dL (8.5-10.1); Carbon Dioxide 27.4 mMol/L (20.0-31.0); Chloride 104 mMol/L (98-107); Creatinine (Component) 0.8 mg/dL (0.6-1.3); Estimated Creatinine Clearance 98.6 mL/min (>60); Globulin 3.2 gm/dL (2.3-3.5); Glucose 100 mg/dL (74-106); Osmolality,Calculated 280 (275-295); Potassium 3.5 mMol/L (3.4-5.1); Sodium 142 mMol/L (136-145); Total Protein 5.4 gm/dL (5.7-8.2); eGFR > 60 See Note
[2024-10-12] MEDS: PANTOPRAZOLE INJ 40 MG VIAL IVP (09:08)
[2024-10-12] MEDS: POTASSIUM CHLORIDE 20 mEq TABCR PO (09:09)
--- NOTE | 2024-10-12 12:53 | SUR.PHASEI ---
pt arrived to PACU via gurney drowsy but arouses to voice, breathing unlabored, report from Tess MAYER
--- NOTE | 2024-10-12 13:03 | SUR.PHASEI ---
report to Tete MAYER
--- NOTE | 2024-10-12 13:31 | SUR.PHASEI ---
1323 Report given to Kole MAYER, patient meets discharge criteria from recovery, awake and talking with this sports writer, breathing unlabored, vital signs stable, denies pain and nausea 1331 Patient transported via gurney to room 352 without incident, patient requested to use th restroom, MEDICAL LABORATORY TECHNICIAN arrived in patients room and stayed with her to assist her to get back in bed
[2024-10-12] MEDS: LIDOCAINE 5% 1 PATCH TOP (13:51)
--- NOTE | 2024-10-12 16:07 | PC.SS ---
rounding note: Patient pending Hida scan and colonoscopy today
--- NOTE | 2024-10-12 16:12 | ESPR_ITS ---
<Statement entered by Saravanan Smith MD - 10/13/24 07:26> I discussed with and supervised the internet marketing manager physician involved in the care of this patient. Patient assessment and plan was discussed with entire medicine team, including my attending. I agree with the assessment and plan as documented by internet marketing manager doctor. Patient care was discussed with my attending physician Dr. Javi Smith, PGY-2 Documentation for date of: 10/12/24 Subjective Subjective Interval history: Patient seen examined at the bedside, reports improvement in her abdominal pain, weakness. She is pending HIDA scan. Colonoscopy found grade 3 internal hemorrhoids which were banded, no bleeding was found. Hemoglobin levels has improved after the transfusion, surgery continue to follow, no plans for surgery for now. Exam Vital Signs Temp Pulse Resp BP Pulse Ox O2 Del Method O2 Flow Rate 97.4 F 74 16 116/81 96 Room Air 2 10/12/24 13:30 10/12/24 13:30 10/12/24 13:30 10/12/24 13:30 10/12/24 13:30 10/12/24 11:57 10/12/24 13:00 Narrative Exam Gen: Well-developed and well-nourished. HEENT: NCAT, PERRLA, EOMI, MMM, anicteric conjunctivae. CVS: normal S1 and S2. RRR. No M/R/G. Resp: CTA B/L. No rhonchi, rales, crackles or wheezing. Abd: soft, mild RUQ tenderness, distended (due to body habitus). BS+ in all 4 quadrants. MSK: Good ROM in BUE & BLE. No edema or rash. Neuro: CN II-XII grossly intact. Moves all 4 extremities. Alert and oriented x3. Psych: appropriate mood and affect. Objective Labs 10/12/24 04:44 10/12/24 04:44 Labs: Laboratory Results - last 24 hr 10/11/24 10/11/24 10/12/24 00:19 20:02 04:44 WBC 7.3 RBC 2.58 L Hgb 7.2 L Hct 22.2 L MCV 86 MCH 27.9 MCHC 32.4 RDW Std Deviation 53.9 H Plt Count 214 Neut % (Auto) 65 Lymph % (Auto) 26 [place] % (Auto) 5 Eos % (Auto) 3 Baso % (Auto) 1 Neut # (Auto) 4.8 Lymph # (Auto) 1.9 [place] # (Auto) 0.4 Eos # (Auto) 0.2 Baso # (Auto) 0.1 Immature Gran # (Auto) 0.02 H Absolute Nucleated RBC 0.00 Immature Gran % 0 Nucleated RBC % 0 Sodium 142 Potassium 3.5 Chloride 104 Carbon Dioxide 27.4 Anion Gap 11 BUN < 5 L Creatinine 0.8 Estim Creat Clear Calc 98.6 eGFR > 60 BUN/Creatinine Ratio 6 L Glucose 100 Calculated Osmolality 280 Calcium 7.3 L Corrected Calcium 8.7 Total Bilirubin 2.6 H AST 32 ALT 10 Alkaline Phosphatase 78 Total Protein 5.4 L Albumin 2.2 L D Globulin 3.2 Albumin/Globulin Ratio 0.7 L Vitamin B12 868 Ur Collection Type Clean Catch Urine Color Tete Urine Clarity Turbid A Urine pH 6.5 Ur Specific [place] 1.017 Urine Protein Negative Urine Glucose (UA) Negative Urine Ketones Negative Urine Blood Trace Urine Nitrite Negative Urine Bilirubin Negative Urine Urobilinogen (Auto) Negative Ur Leukocyte Esterase Positive Urine RBC 1 Urine WBC 504 H Ur Squamous Epith Cells 4 Urine Bacteria None Quality Measures Quality Measures VTE prophylaxis Assessment & Plan Assessment Current Active Medications: Generic Name Dose Route Start Last Admin Trade Name Freq PRN Reason Stop Dose Admin Acetaminophen 650 mg 10/11/24 16:35 Acetaminophen 325 Mg Tablet PO 11/10/24 05:41 Q6H PRN Fever >100.3 or pain 1-3 Hydrocodone Bitart/Acetaminophen 1 tab 10/11/24 16:34 10/12/24 16:11 Hydrocodone/Apap 5/325 Tablet PO 10/16/24 16:33 1 tab Q8HR PRN Administration Pain 4-10 Piperacillin/Tazobactam/Dextrose 3.375 gm in 50 mls @ 12.5 mls/hr 10/11/24 22:00 10/12/24 13:51 Zosyn IV 10/18/24 21:59 12.5 mls/hr Q8HR BRIANA Administration Lidocaine/Prilocaine 0 gm 10/11/24 09:05 Lidocaine/Prilocaine Cr 5gm 5 Gm Tube TOP 11/10/24 08:59 QDAY PRN for pain control before blood draw Ondansetron HCl 4 mg 10/11/24 05:42 Ondansetron Inj 2 Mg/Ml Inj 2 Ml IVP 11/10/24 05:41 Q6H PRN NAUSEA OR VOMITING Protocol Pantoprazole Sodium 40 mg 10/11/24 13:30 10/12/24 09:08 Pantoprazole Inj 40 Mg Vial IVP 11/10/24 13:29 40 mg QDAY BRIANA Administration Plan The patient is a 37-year-old female with significant past medical history of upper GI bleed secondary to H. pylori, gastritis, anemia post blood transfusions secondary to menorrhagia, alcohol use disorder, alcoholic liver disease presented to the hospital with chief complaints of low hemoglobin noted on labs. #Severe chronic posthemorrhagic anemia #GI bleed #History of menorrhagia #History of alcohol abuse #History of NSAID use #HIstory of hemorrhoids Patient has a history of anemia and in 2023 patient was admitted, received blood transfusion and was prescribed iron supplementation. GI work up then did not reveal the source of bleeding, Patient reports bleeding per rectum on and off since 2 to 3 months and menorrhagia that resolved 1 month ago Endorsed that she is not compliant with iron supplements Mild abdominal pain noted especially after having fatty meals like beef Also endorsed that she is taking NSAIDs for her back pain Vitals at the time of admission are stable In the ED labs showed hemoglobin of 4.7 Tested positive for stool occult blood 10/11/24: GI consulted, she underwent EGD that showed grade I varices, no signs of bleeding. Octreotide drip discontinued, pantoprazole dose decreased tp 40 mg. Pending colonoscopy. Post transfusion H&H: Hgb 7.9, HCT 22.8% Iron panel showed signs of severe iron deficiency. 10/12/24: Colonoscopy showed internal hemorrhoids, they were banded. Vitamin B12 levels are normal Plan: - Pantoprazole 40 mg qday - Dr. Wiggins was consulted, appreciate his recommendations - monitor CBC, transfuse of Hgb <7 - iron supplements on discharge #Acute calculous cholecystitis Patient reports RUQ pain, nausea, vomiting after fatty food. Initial labs showed WBC count of 17.9. Bilirubin went up to 2.6 mg/dl. US showed signs of primary hepatocellular disease. R factor is 1.4 - cholestatic injury. Plan: - Zosyn 3.375 mg q6hr 10/11-current - General surgery is consulted - HIDA scan ordered #Chronic alcohol use disorder #Alcohol liver disorder - Patient reported that she cut down her alcohol intake to 1-2 tall beer cans per day - Last alcohol drink was 2 weeks ago - Labs showed hypoalbuminemia and mildly elevated AST, INR 1.5 R factor Plan: - Will monitor LFTs Health maintenance: FEN: Low sodium diet DVT prophylaxis: SCDs GI prophylaxis: pantoprazole 40 mg qday Dispo: med tele CODE STATUS: Full code Plan of care discussed with attending Dr. Caldwell, PGY-[address] Smith. Teresa Mitchell MD, PGY 1. Attending Provider Attestation/Addendum I have discussed and was present for the essential components of the history, physical examination, diagnosis, and treatment plan with the resident. I agree with the patient's care as documented by the resident and amended herein by me. Matt Caldwell DO. Although this document has been carefully reviewed, there may still be some phonetic and other typographical errors. These errors are purely grammatical due to imperfections in the software program and should not be construed in any way to compromise the substance of the patient's medical care during this visit.
[2024-10-13] VITALS (15 sets, daily range): BP systolic 91–114; BP diastolic 53–76; PULSE 72–96; RESP 16–19; TEMP 36.1–36.5; O2SAT 96–100; BMI 27.6
[2024-10-13] MEDS: HYDROcodone/APAP 5/325 TABLET 1 TAB PO ×3 (00:07→19:12)
[2024-10-13] MEDS: MELATONIN 3 MG TABLET PO ×2 (00:08→20:23)
[2024-10-13 05:41] LABS: Basophils # (Auto) 0.1 Thou/mm3 (0.0-0.2); Basophils % (Auto) 1 % (0-2.5); Eosinophils # (Auto) 0.2 Thou/mm3 (0.0-0.5); Eosinophils % (Auto) 3 % (0-10); Immature Granulocytes % (Auto) 0 % (0-0); Immature Granulocytes Auto 0.03 Thou/mm3 (0.00-0.00); Lymphocytes % (Auto) 25 % (10-50); Mean Corpuscular HGB Conc 33.3 g/dl (31.0-37.0); Mean Corpuscular Hemoglobin 27.8 pg (25.0-35.0); Mean Corpuscular Volume 83 fL (80-100); Monocytes # (Auto) 0.6 Thou/mm3 (0.0-0.8); Monocytes % (Auto) 8 % (0-12); Neutrophils % (Auto) 64 % (37-80); Nucleated Red Blood Cell # 0.02 Thou/mm3 (0.00-0.00); Nucleated Red Blood Cell % 0 /100 WBC (0); Platelet Count 201 Thou/mm3 (140-440); Red Blood Count 2.41 Miln/mm3 (4.00-5.20); White Blood Count 7.9 Thou/mm3 (3.6-11.0)
[2024-10-13] MEDS: PIPER/TAZO 3.375 GM PREMIX 3.375 GM/50 ML BAG IV ×3 (06:00→21:24)
[2024-10-13 06:02] LABS: Hemoglobin 6.7 g/dL (12.0-16.0)
[2024-10-13 06:03] LABS: Hematocrit 20.1 % (36.0-46.0)
[2024-10-13 06:13] LABS: Alanine Aminotransferase 9 U/L (10-49); Albumin, Serum 2.2 gm/dL (3.5-5.0); Albumin/Globulin Ratio 0.7 (1.2-2.2); Alkaline Phosphatase 76 U/L (46-116); Anion Gap 10 (7-16); Aspartate Amino Transferase 29 U/L (0-34); BUN/Creatinine Ratio 6 Ratio (12-20); Bilirubin,Total 1.2 mg/dL (0.3-1.2); Blood Urea Nitrogen < 5 mg/dL (9-23); Calcium 7.3 mg/dL (8.3-10.6); Calcium (Corrected) 8.7 mg/dL (8.5-10.1); Carbon Dioxide 29.2 mMol/L (20.0-31.0); Chloride 105 mMol/L (98-107); Creatinine (Component) 0.8 mg/dL (0.6-1.3); Estimated Creatinine Clearance 98.6 mL/min (>60); Glucose 88 mg/dL (74-106); Osmolality,Calculated 283 (275-295); Potassium 3.4 mMol/L (3.4-5.1); Sodium 144 mMol/L (136-145); Total Protein 5.2 gm/dL (5.7-8.2); eGFR > 60 See Note
[2024-10-13] MEDS: PANTOPRAZOLE INJ 40 MG VIAL IVP (09:24)
--- NOTE | 2024-10-13 11:09 | PC.SS ---
SS met with patient who is alert/oriented. Patient was able to verify demographics. Patient was admitted for anemia. She is independent with ADL's. She resides with her kids. Patient was going to discharge today. However, she had low blood levels. Patient will stay another night to monitor. Possible d/c tomorrow home. PCP: ERICA Nguyen. Last appt. was last week. Transportation: family upon discharge or [employer]. Pharmacy: [facility]. Alt medical decision maker: Ex vat overhauler, Kolby, . D/c plan: home alt medical decision maker:ex boyfriend, Kolby,
--- NOTE | 2024-10-13 11:46 | PD.IMPROG ---
Documentation for date of: 10/13/24 Subjective Subjective Interval history: Hemoglobin hematocrit did drop to 6.3 and 20.1 After transfusion it came up to 8.3 and 24.0 Exam Vital Signs Temp Pulse Resp BP Pulse Ox O2 Del Method O2 Flow Rate 97.5 F 88 19 114/66 98 Room Air 2 10/13/24 09:37 10/13/24 09:37 10/13/24 09:37 10/13/24 09:37 10/13/24 09:37 10/13/24 08:00 10/12/24 13:00 Constitutional Comments: Alert oriented Objective Labs 10/13/24 11:35 10/13/24 05:05 Labs: Laboratory Results - last 24 hr 10/11/24 10/13/24 00:19 05:05 WBC 7.9 RBC 2.41 L Hgb 6.7 L* Hct 20.1 L* MCV 83 MCH 27.8 MCHC 33.3 RDW Std Deviation 55.0 H Plt Count 201 Neut % (Auto) 64 Lymph % (Auto) 25 [place] % (Auto) 8 Eos % (Auto) 3 Baso % (Auto) 1 Neut # (Auto) 5.0 Lymph # (Auto) 2.0 [place] # (Auto) 0.6 Eos # (Auto) 0.2 Baso # (Auto) 0.1 Immature Gran # (Auto) 0.03 H Absolute Nucleated RBC 0.02 H Immature Gran % 0 Nucleated RBC % 0 Sodium 144 Potassium 3.4 Chloride 105 Carbon Dioxide 29.2 Anion Gap 10 BUN < 5 L Creatinine 0.8 Estim Creat Clear Calc 98.6 eGFR > 60 BUN/Creatinine Ratio 6 L Glucose 88 Calculated Osmolality 283 Calcium 7.3 L Corrected Calcium 8.7 Total Bilirubin 1.2 D AST 29 ALT 9 L Alkaline Phosphatase 76 Total Protein 5.2 L Albumin 2.2 L Globulin 3.0 Albumin/Globulin Ratio 0.7 L Blood Type O Positive Antibody Screen POSITIVE Antibody Identification Cold Antibody Crossmatch See Detail Blood Bank Wristband ID Yes Impressions Impression: Acute posthemorrhagic anemia Hemorrhagic gastritis 1+ esophageal varices Large internal hemorrhoids requiring band ligation Admission source may include small bowel lesion such as angiodysplasias Patient should have a capsule endoscopy which can be done as an outpatient for further evaluation and management of this case Assessment & Plan A&P Narrative # Acute posthemorrhagic anemia Continue octreotide infusion Continue IV Protonix Clear liquid diet Consent obtained for fiberoptic esophagogastroduodenoscopy with possible biopsy possible therapeutic intervention under intravenous moderate sedation Thank you very much for the opportunity to participate in care of this patient Other medical problems include # Chronic liver disease secondary to alcohol patient was drinking actively up until 2 weeks ago her favorite drink is ice tea follow-up alcohol Time Spent With Patient Time: Total time spent is greater than 50% in coordination of care (as documented) at patient's floor/unit and/or counseling patient:
[2024-10-13 11:50] LABS: Hematocrit 24.8 % (36.0-46.0)
[2024-10-13 12:51] LABS: Hemoglobin 8.3 g/dL (12.0-16.0)
--- NOTE | 2024-10-13 13:26 | ESPR_ITS ---
<Statement entered by Saravanan Smith MD - 10/14/24 07:19> I discussed with and supervised the collector of internal revenue physician involved in the care of this patient. Patient assessment and plan was discussed with entire medicine team, including my attending. I agree with the assessment and plan as documented by collector of internal revenue doctor. Patient care was discussed with my attending physician Dr. Javi Smith, PGY-2 Documentation for date of: 10/13/24 Subjective Subjective Interval history: Patient is seen and examined at bedside. No acute overnight events. Stated that she is feeling good and did not have any further episodes of bloody bowel movement after the procedure. Patient underwent colonoscopy yesterday and found to have grade 3 internal hemorrhoids which were banded by Dr. Wiggins Patient endorsed that she had bleeding at the time of hemorrhoids banding. Vitals are stable. Physical examination remains unchanged Labs showed hemoglobin 6.7 for which patient was given a unit of blood transfusion. Post transfusion H&H is 8.3 Will start propranolol 10 Mg twice daily in view of grade [address] Sweet, general surgeon was consulted and he recommended no cholecystectomy for now and recommended to follow-up in outpatient basis for cholecystectomy Exam Vital Signs Temp Pulse Resp BP Pulse Ox O2 Del Method O2 Flow Rate 97.2 F 82 16 106/68 97 Room Air 2 10/13/24 12:00 10/13/24 12:00 10/13/24 12:00 10/13/24 12:00 10/13/24 12:00 10/13/24 12:00 10/12/24 13:00 Narrative Exam General: Awake. HEENT: Normocephalic, atraumatic, mucous membranes moist. healed rash from acne with erosions on forehead Heart: Regular rate and rhythm, no murmurs. Lungs: Clear to auscultation with no wheezing or crackles. Abdomen: Soft, nondistended, mild tenderness in right upper abdomen, positive bowel sounds. ?No guarding or rebound tenderness. Neurologic: Alert and oriented x3, no gross neurological deficit, and patient able to move all 4 extremities. Extremities: No edema. Skin: No rash or ecchymoses. Objective Labs 10/14/24 04:25 10/14/24 04:25 Labs: Laboratory Results - last 24 hr 10/11/24 10/13/24 10/13/24 00:19 05:05 11:35 WBC 7.9 RBC 2.41 L Hgb 6.7 L* 8.3 L D Hct 20.1 L* 24.8 L MCV 83 MCH 27.8 MCHC 33.3 RDW Std Deviation 55.0 H Plt Count 201 Neut % (Auto) 64 Lymph % (Auto) 25 Mayes % (Auto) 8 Eos % (Auto) 3 Baso % (Auto) 1 Neut # (Auto) 5.0 Lymph # (Auto) 2.0 Mayes # (Auto) 0.6 Eos # (Auto) 0.2 Baso # (Auto) 0.1 Immature Gran # (Auto) 0.03 H Absolute Nucleated RBC 0.02 H Immature Gran % 0 Nucleated RBC % 0 Sodium 144 Potassium 3.4 Chloride 105 Carbon Dioxide 29.2 Anion Gap 10 BUN < 5 L Creatinine 0.8 Estim Creat Clear Calc 98.6 eGFR > 60 BUN/Creatinine Ratio 6 L Glucose 88 Calculated Osmolality 283 Calcium 7.3 L Corrected Calcium 8.7 Total Bilirubin 1.2 D AST 29 ALT 9 L Alkaline Phosphatase 76 Total Protein 5.2 L Albumin 2.2 L Globulin 3.0 Albumin/Globulin Ratio 0.7 L Blood Type O Positive Antibody Screen POSITIVE Antibody Identification Cold Antibody Crossmatch See Detail Blood Bank Wristband ID Yes Quality Measures Quality Measures VTE prophylaxis Assessment & Plan Assessment Current Active Medications: Generic Name Dose Route Start Last Admin Trade Name Freq PRN Reason Stop Dose Admin Acetaminophen 650 mg 10/11/24 16:35 Acetaminophen 325 Mg Tablet PO 11/10/24 05:41 Q6H PRN Fever >100.3 or pain 1-3 Hydrocodone Bitart/Acetaminophen 1 tab 10/11/24 16:34 10/13/24 09:24 Hydrocodone/Apap 5/325 Tablet PO 10/16/24 16:33 1 tab Q8HR PRN Administration Pain 4-10 Piperacillin/Tazobactam/Dextrose 3.375 gm in 50 mls @ 12.5 mls/hr 10/11/24 22:00 10/13/24 13:20 Zosyn IV 10/18/24 21:59 12.5 mls/hr Q8HR BRIANA Administration Lidocaine/Prilocaine 0 gm 10/11/24 09:05 Lidocaine/Prilocaine Cr 5gm 5 Gm Tube TOP 11/10/24 08:59 QDAY PRN for pain control before blood draw Melatonin 3 mg 10/12/24 23:50 10/13/24 00:08 Melatonin 3 Mg Tablet PO 11/11/24 23:49 3 mg HS BRIANA Administration Ondansetron HCl 4 mg 10/11/24 05:42 Ondansetron Inj 2 Mg/Ml Inj 2 Ml IVP 11/10/24 05:41 Q6H PRN NAUSEA OR VOMITING Protocol Pantoprazole Sodium 40 mg 10/11/24 13:30 10/13/24 09:24 Pantoprazole Inj 40 Mg Vial IVP 11/10/24 13:29 40 mg QDAY BRIANA Administration Plan The patient is a 37-year-old female with significant past medical history of upper GI bleed secondary to H. pylori, gastritis, anemia post blood transfusions secondary to menorrhagia, alcohol use disorder, alcoholic liver disease presented to the hospital with chief complaints of low hemoglobin noted on labs. #Severe chronic posthemorrhagic anemia #GI bleed -grade 1 esophageal varices, grade 3 internal hemorrhoids s/p banding #History of menorrhagia #History of alcohol, NSAID abuse #HIstory of hemorrhoids Patient has a history of anemia and in 2023 patient was admitted, received blood transfusion and was prescribed iron supplementation. GI work up then showed hemorrhoids and esophagitis, gastritis Patient reports bleeding per rectum on and off since 2 to 3 months and menorrhagia that resolved 1 month ago Endorsed that she is not compliant with iron supplements Mild abdominal pain noted especially after having fatty meals like beef Also endorsed that she is taking NSAIDs for her back pain Vitals at the time of admission are stable In the ED labs showed hemoglobin of 4.7 Tested positive for stool occult blood GI consulted, she underwent EGD that showed grade I varices, no signs of bleeding. Octreotide drip discontinued Iron panel showed signs of severe iron deficiency. Colonoscopy showed internal hemorrhoids, they were banded. Vitamin B12 levels are normal Plan: - Pantoprazole 40 mg qday - Dr. Wiggins was consulted, appreciate his recommendations - Monitor CBC, transfuse of Hgb <7 - Started on IV iron transfusion and will start iron supplements on discharge - Started on propranolol 10 Mg p.o. twice daily #? Acute calculous cholecystitis Patient reports RUQ pain, nausea, vomiting after fatty food. Initial labs showed WBC count of 17.9. Bilirubin went up to 2.6 mg/dl and came back to baseline. US showed signs of primary hepatocellular disease. HIDA scan showed no gallbladder activity Plan: - Dr. Sweet is following the patient and he recommended no surgery as of now -as patient does not seem to have cholecystitis clinically - Recommended to follow-up in outpatient basis for cholecystectomy once the hemoglobin is stable #Chronic alcohol use disorder #Alcohol liver disorder - likely cirrhotic in the setting of esophageal varices - Patient reported that she cut down her alcohol intake to 1-2 tall beer cans per day - Last alcohol drink was 2 weeks ago - Labs showed hypoalbuminemia and mildly elevated AST, INR 1.5 Plan: - Will monitor LFTs - Recommended to abstain from alcohol Health maintenance: FEN: Low sodium diet DVT prophylaxis: SCDs GI prophylaxis: pantoprazole 40 mg qday Dispo: med tele CODE STATUS: Full code Patient plan of care was discussed with the attending physician, Dr. Caldwell and senior resident Dr. Sarah Leigh, PGY1 Attending Provider Attestation/Addendum I have discussed and was present for the essential components of the history, physical examination, diagnosis, and treatment plan with the resident. I agree with the patient's care as documented by the resident and amended herein by me. Matt Caldwell DO. Patient seen and evaluated this AM. Patient being transfused this morning, hemoglobin low likely secondary to bleeding hemorrhoids colonoscopy. Will continue to monitor 1 more day, likely discharge tomorrow 10/14. Although this document has been carefully reviewed, there may still be some phonetic and other typographical errors. These errors are purely grammatical due to imperfections in the software program and should not be construed in any way to compromise the substance of the patient's medical care during this visit.
[2024-10-13] MEDS: FERRIC SOD GLUC INJ 125 MG in SODIUM CHLORIDE 0.9% 100 ML 110 MG IV (15:16)
[2024-10-14] VITALS: BP 103/72; PULSE 86; PULSE 88; RESP 15; TEMP 36.2; O2SAT 97
[2024-10-14 04:00] VITALS: BP 110/76; PULSE 74; PULSE 92; RESP 16; TEMP 36.4; O2SAT 97
[2024-10-14] MEDS: HYDROcodone/APAP 5/325 TABLET 1 TAB PO (04:39)
[2024-10-14] MEDS: PIPER/TAZO 3.375 GM PREMIX 3.375 GM/50 ML BAG IV (05:04)
[2024-10-14 05:39] LABS: Basophils # (Auto) 0.1 Thou/mm3 (0.0-0.2); Basophils % (Auto) 1 % (0-2.5); Eosinophils # (Auto) 0.2 Thou/mm3 (0.0-0.5); Eosinophils % (Auto) 2 % (0-10); Hematocrit 25.1 % (36.0-46.0); Immature Granulocytes % (Auto) 0 % (0-0); Immature Granulocytes Auto 0.02 Thou/mm3 (0.00-0.00); Lymphocytes % (Auto) 25 % (10-50); Mean Corpuscular HGB Conc 32.3 g/dl (31.0-37.0); Mean Corpuscular Hemoglobin 28.1 pg (25.0-35.0); Mean Corpuscular Volume 87 fL (80-100); Monocytes # (Auto) 0.5 Thou/mm3 (0.0-0.8); Monocytes % (Auto) 7 % (0-12); Neutrophils # (Auto) 5.3 Thou/mm3 (1.8-7.7); Neutrophils % (Auto) 66 % (37-80); Nucleated Red Blood Cell % 0 /100 WBC (0); Platelet Count 198 Thou/mm3 (140-440); RDW Standard Deviation 60.8 fL (36.4-46.3); Red Blood Count 2.88 Miln/mm3 (4.00-5.20); White Blood Count 8.1 Thou/mm3 (3.6-11.0)
[2024-10-14] MEDS: LIDOCAINE 5% 1 PATCH TOP (06:20)
[2024-10-14 06:36] LABS: Alanine Aminotransferase 10 U/L (10-49); Albumin, Serum 2.2 gm/dL (3.5-5.0); Albumin/Globulin Ratio 0.7 (1.2-2.2); Alkaline Phosphatase 79 U/L (46-116); Anion Gap 13 (7-16); Aspartate Amino Transferase 34 U/L (0-34); BUN/Creatinine Ratio 6 Ratio (12-20); Bilirubin,Total 1.7 mg/dL (0.3-1.2); Blood Urea Nitrogen < 5 mg/dL (9-23); Calcium 7.5 mg/dL (8.3-10.6); Calcium (Corrected) 8.9 mg/dL (8.5-10.1); Carbon Dioxide 26.2 mMol/L (20.0-31.0); Chloride 105 mMol/L (98-107); Creatinine (Component) 0.8 mg/dL (0.6-1.3); Estimated Creatinine Clearance 96.5 mL/min (>60); Globulin 3.2 gm/dL (2.3-3.5); Glucose 82 mg/dL (74-106); Osmolality,Calculated 283 (275-295); Potassium 3.6 mMol/L (3.4-5.1); Sodium 144 mMol/L (136-145); Total Protein 5.4 gm/dL (5.7-8.2); eGFR > 60 See Note
[2024-10-14 07:47] VITALS: BP 108/60; PULSE 89; RESP 16; TEMP 36.4; O2SAT 97
[2024-10-14 08:00] VITALS: PULSE 89
[2024-10-14 08:00] LABS: Hemoglobin 8.1 g/dL (12.0-16.0)
[2024-10-14 08:19] VITALS: BP 108/60; PULSE 89
[2024-10-14] MEDS: PANTOPRAZOLE INJ 40 MG VIAL IVP (08:19)
[2024-10-14] MEDS: PROPRANOLOL 10 MG TABLET PO (08:19)
--- NOTE | 2024-10-14 10:11 | PC.SS ---
Addendum entered by Martine Orona 10/14/24 11:25: SS assisted patient with setting up [place] [facility]. Patient set up transport and was picked up at 11a.m. Floor nurse made aware. Original Note: Follow up note: Patient will d/c home today. Nursing contacted indicating that she will need transport home. We can set up with [employer] when nursing provides discharge paperwork.
--- NOTE | 2024-10-14 13:43 | PD.IMPROG ---
Documentation for date of: 10/14/24 Subjective Subjective Interval history: Late entry for the note Hemoglobin hematocrit 8.1 and 25.1 Case discussed with internal medicine team okay to discharge patient home to be followed by the PCP Long discussion with the patient about complete abstinence from alcohol she is going to work on it Advised her to join AA Exam Vital Signs Temp Pulse Resp BP Pulse Ox O2 Del Method O2 Flow Rate 97.5 F 89 16 108/60 97 Room Air 2 10/14/24 07:47 10/14/24 08:19 10/14/24 07:47 10/14/24 08:19 10/14/24 07:47 10/14/24 07:47 10/12/24 13:00 Objective Labs 10/14/24 04:25 10/14/24 04:25 Labs: Laboratory Results - last 24 hr 10/11/24 10/14/24 00:19 04:25 WBC 8.1 RBC 2.88 L Hgb 8.1 L Hct 25.1 L MCV 87 MCH 28.1 MCHC 32.3 RDW Std Deviation 60.8 H Plt Count 198 Neut % (Auto) 66 Lymph % (Auto) 25 Bladen % (Auto) 7 Eos % (Auto) 2 Baso % (Auto) 1 Neut # (Auto) 5.3 Lymph # (Auto) 2.0 Bladen # (Auto) 0.5 Eos # (Auto) 0.2 Baso # (Auto) 0.1 Immature Gran # (Auto) 0.02 H Absolute Nucleated RBC 0.00 Immature Gran % 0 Nucleated RBC % 0 Sodium 144 Potassium 3.6 Chloride 105 Carbon Dioxide 26.2 Anion Gap 13 BUN < 5 L Creatinine 0.8 Estim Creat Clear Calc 96.5 eGFR > 60 BUN/Creatinine Ratio 6 L Glucose 82 Calculated Osmolality 283 Calcium 7.5 L Corrected Calcium 8.9 Total Bilirubin 1.7 H D AST 34 ALT 10 Alkaline Phosphatase 79 Total Protein 5.4 L Albumin 2.2 L Globulin 3.2 Albumin/Globulin Ratio 0.7 L Crossmatch See Detail Impressions Impression: Acute posthemorrhagic anemia status post band ligation of the esophageal varices as well as dilatation of the internal hemorrhoids Patient to be followed by PCP Assessment & Plan A&P Narrative # Acute posthemorrhagic anemia Continue octreotide infusion Continue IV Protonix Clear liquid diet Consent obtained for fiberoptic esophagogastroduodenoscopy with possible biopsy possible therapeutic intervention under intravenous moderate sedation Thank you very much for the opportunity to participate in care of this patient Other medical problems include # Chronic liver disease secondary to alcohol patient was drinking actively up until 2 weeks ago her favorite drink is ice tea follow-up alcohol Time Spent With Patient Time: Total time spent is greater than 50% in coordination of care (as documented) at patient's floor/unit and/or counseling patient:
--- NOTE | 2024-10-14 15:44 | ESDS_ITS ---
<Statement entered by Saravanan Smith MD - 10/15/24 07:12> I discussed with and supervised the chemist internship physician involved in the care of this patient. Patient assessment and plan was discussed with entire medicine team, including my attending. I agree with the assessment and plan as documented by chemist internship doctor. Patient care was discussed with my attending physician Dr. Javi Smith, PGY-2 Planned Discharge Date 10/14/24 DS: Providers Provider Date of admission: 10/11/24 05:40 Primary care physician: Darrius Faria PA-C Admitting Provider: Blas Rodriguez MD Attending Provider on Admission: Tyler Caldwell DO Consults: 10/11/24 04:46 Consult to Gastroenterology Stat Comment: Consulting Provider: Bianca Wiggins 10/11/24 10:25 Consult to General Surgery Routine Comment: Acute cholecystitis susp Consulting Provider: Kathy Angelo Attending Provider on DC: Tyler Leigh MD Discharging Provider: Tyler Leigh MD DS: Diagnosis Problem List Completed Was Problem List Reviewed/Reconciled?: Yes Hospital Course Hospital Course Hospital course: A 37-year-old female with significant past medical history of upper GI bleed secondary to H. pylori, gastritis, anemia post blood transfusions secondary to menorrhagia, alcohol use disorder, alcoholic liver disease presented to the hospital with chief complaints of low hemoglobin noted on lab when patient visited her PCP for dizziness for 2 weeks. Hospital course: Labs at the time of admission are significant for WBC 17.9, Hb 4.7, INR 1.5, sodium 134, AST 39, albumin 2.7. Urine tested positive for opiates and marijuana. Patient was given protonix and started on octreotide drip. Patient was given 3 PRBC transfusions. Gallbladder ultrasound was done in view of abdominal pain which showed primary hepatocellular disease and later HIDA scan was done which showed no gallbladder activity. Management Technician, Dr. Wiggins was consulted and he performed upper GI endoscopy that showed grade 1 esophageal varices, erythematous mucosa in gastric antrum. Colonoscopy showed internal hemorrhoids grade 3 and banding was done. Patient lost blood at the time of hemorrhoidal banding and later 1 PRBC transfusion was done in view of low hemoglobin. General surgeon, Dr. Wiggins was consulted in view of no activity of gallbladder on HIDA scan but as patient is not having any active symptoms and had acute upper GI bleed, recommended to follow-up in outpatient basis for cholecystectomy. Hemoglobin was stable at the time of discharge Patient is discharged to home with following medications and recommendations -Follow-up with PCP within 1 week of discharge. If you do not have appointment, please follow-up with the [facility] with Dr. Leigh. Call [phone] to make an appointment. -FOLLOW UP WITH Dr. Barragan for Gall bladder removal -Recommended to start propranolol 10 Mg p.o. twice daily - Recommended to continue baclofen 20 Mg as needed, lidocaine patch as needed, lidocaine 5% topical application as needed for hemorrhoids, hemorrhoidal ointment as needed, melatonin 1 Mg as needed, pantoprazole 40 Mg p.o. daily - Recommended to continue ferrous sulfate 325 Mg p.o. every other day - Recommended to stop folic acid and thiamine - Recommended to abstain from alcohol intake - Return to ED if symptoms persist or return Patient plan of care was discussed with the attending physician, Dr. Caldwell and senior resident Dr. Sarah Leigh, PGY1 Time Spent with Patient Time attestation: Total time spent providing and/or coordinating discharge services: Time spent: Greater than 30 minutes Exam Vital Signs Temp Pulse Resp BP Pulse Ox O2 Del Method O2 Flow Rate 97.5 F 89 16 108/60 97 Room Air 2 10/14/24 07:47 10/14/24 08:19 10/14/24 07:47 10/14/24 08:19 10/14/24 07:47 10/14/24 07:47 10/12/24 13:00 Narrative Exam General: Awake. HEENT: Normocephalic, atraumatic, mucous membranes moist. Heart: Regular rate and rhythm, no murmurs. Lungs: Clear to auscultation with no wheezing or crackles. Abdomen: Soft, nondistended, nontender, positive bowel sounds. ?No guarding or rebound tenderness. Neurologic: Alert and oriented x3, no gross neurological deficit, and patient able to move all 4 extremities. Extremities: No edema. Skin: No rash or ecchymoses. Discharge Plan Plan Patient Disposition: HOME (Self Care) Patient condition on transfer: Stable Care Plan Goals: -Follow-up with PCP within 1 week of discharge. If you do not have appointment, please follow-up with the [facility] with Dr. Leigh. Call [phone] to make an appointment. -Recommended to start propranolol 10 Mg p.o. twice daily - Recommended to continue baclofen 20 Mg as needed, lidocaine patch as needed, lidocaine 5% topical application as needed for hemorrhoids, hemorrhoidal ointment as needed, melatonin 1 Mg as needed, pantoprazole 40 Mg p.o. daily - Recommended to continue ferrous sulfate 325 Mg p.o. every other day - Recommended to stop folic acid and thiamine - Recommended to abstain from alcohol intake -Return to ED if symptoms persist or return Prescriptions/Referrals Prescriptions/Med Rec: New propranolol 10 mg Tablet 10 mg PO BID Qty: 60 1RF Continued baclofen 20 mg tablet 20 mg PO BID PRN (Reason: Muscle Spasms) 30 Days Qty: 60 1RF lidocaine [RectaSmoothe] 5 % Cream 1 applic top QDAY PRN (Reason: hemorrhoids) 30 Days Qty: 1 3RF lidocaine 5 % Adhesive Patch,Medicated 1 patch top QDAY PRN (Reason: abdominal pain) 30 Days Qty: 30 3RF melatonin 1 mg tablet 0.5 mg PO HS PRN (Reason: sleep) Qty: 15 3RF pantoprazole 40 mg tablet,delayed release (DR/EC) 40 mg PO QDAY 60 Days Qty: 60 1RF Hemorrhoidal(PE-min oil-gwendolyn) 0.25-14-74.9 % ointment 1 applic [place] QDAY PRN (Reason: hemorrhoids) Qty: 57 3RF Changed ferrous sulfate [iron] 325 mg (65 mg iron) Tablet 325 mg PO Q48H 30 Days Qty: 60 3RF Discontinued folic acid 1 mg Tablet 1 mg PO BID 30 Days Qty: 60 3RF thiamine mononitrate (vit B1) 100 mg Tablet 100 mg PO BID 30 Days Qty: 60 3RF Referrals: Darrius Faria PA-C [Primary Care Provider] - Kathy Angelo MD [Physician] - Patient/Caregiver Discharge Instructions Education Materials: Alcoholism: Myths and Facts, Alcohol Addiction, Addiction: Getting Help Print Language: Kiswahili Stand Alone Forms: Vee Award Info., Patient Portal Info Letter Discharge Order Discharge Orders: Discharge (Routine); Ordered 10/14/24 Ordered By: Tyler Leigh Quality Discharge Quality Measures VTE prophylaxis MD Attestestation MD Attestation I have discussed and was present for the essential components of the discharge history, physical examination, diagnosis, and discharge treatment plan with the resident. I agree with the patient's discharge care as documented by the resident and amended herein by me. Matt Caldwell, DO. The patient understood all discharge instructions, all questions were answered satisfactorily. The patient was instructed to return to the Emergency Department is symptoms worsened or persisted. Patient's hemoglobin stable on day of discharge, patient discharged on propranolol 10 mg twice daily, will need close follow-up with primary care physician within 5 to 10 days of discharge. The patient was stable, afebrile, tolerating p.o. intake and ambulatory at time of discharge home. Although this document has been carefully reviewed, there may still be some phonetic and other typographical errors. These errors are purely grammatical due to imperfections in the software program and should not be construed in any way to compromise the substance of the patient's medical care during this visit.
== END 2024-10-14 11:00 | disposition home or self-care (01) | DRG 952 ==
LOC: SERX 10-11 05:33 → SERHOLD 10-11 05:55 → S3NX 10-11 08:21
PROVIDERS: Physician Assistant; Specialist; Student in an Organized Health Care Education/Training Program; Admitting Provider Student in an Organized Health Care Education/Training Program; Emergency Provider Emergency Medicine; PCP Physician Assistant; Visit Provider Student in an Organized Health Care Education/Training Program
PROC: 06LY8CC Occlusion of Hemorrhoidal Plexus with Extraluminal Device, Via Natural or Artificial Opening Endoscopic (ICD-10-PCS; CPT 43239; principal; 2024-10-11 12:00)
PROC: 0DJD8ZZ Inspection of Lower Intestinal Tract, Via Natural or Artificial Opening Endoscopic (ICD-10-PCS; CPT 45330; principal; 2024-10-12 13:00)
DX: K70.30 Alcoholic cirrhosis of liver without ascites (principal); I85.10 Secondary esophageal varices without bleeding; F12.90 Cannabis use, unspecified, uncomplicated; D62 Acute posthemorrhagic anemia; K80.00 Calculus of gallbladder with acute cholecystitis without obstruction; F10.10 Alcohol abuse, uncomplicated; E88.09 Other disorders of plasma-protein metabolism, not elsewhere classified; N92.0 Excessive and frequent menstruation with regular cycle; K20.90 Esophagitis, unspecified without bleeding; K29.71 Gastritis, unspecified, with bleeding; K64.2 Third degree hemorrhoids; Z79.899 Other long term (current) drug therapy; D68.9 Coagulation defect, unspecified
CPT/HCPCS: 36415; 36430; 76705; 78227; 80053; 80307; 80320; 81001; 81025; 82607; 82728; 83540; 83550; 84443; 85014; 85018; 85025; 85610; 85730; 86850; 86870; 86900; 86901; 86921; 86922; 87040; 96361; 96374; 99285; A4649; A9537; J1200; J2250; J2354; J2470; J2543; J2805; J2916; J3010; J3430; J3480; J3490; J7030; J7050; P9016; A9270; G0480

== ENCOUNTER 2025-03-23 13:14 | Inpatient (IN) | payer MEDICAID, SELFPAY ==
[2025-03-23] VITALS (11 sets, daily range): BP systolic 107–125; BP diastolic 64–80; PULSE 78–100; RESP 14–20; TEMP 36.3–37.7; O2SAT 98–100; BMI 25.0; BMI 24.6
--- NOTE | 2025-03-23 13:38 | PD.EDRME ---
Rapid Medical Screening Exam RME Arrival date/time: 03/23/25 13:14 39-year-old female everyday drinker presents the emergency department today stating that she was told to come to the ER for low hemoglobin last week Chief Complaint: General Adult/Misc Complain Vital signs: Vital Signs Temperature 99.8 F 03/23/25 13:33 Pulse Rate 94 03/23/25 13:33 Respiratory Rate 16 03/23/25 13:33 Blood Pressure 117/80 03/23/25 13:33 Pulse Oximetry (%) 98 03/23/25 13:33 Oxygen Delivery Method Room Air 03/23/25 13:33 Vital signs reviewed by provider: Yes Exam: On exam patient well-appearing does not appear ill or toxic patient reports no chest pain or shortness of breath Clinical Impression: Lab work ordered
[2025-03-23 13:56] LABS: Basophils # (Auto) 0.1 Thou/mm3 (0.0-0.2); Basophils % (Auto) 1 % (0-2.5); Eosinophils # (Auto) 0.0 Thou/mm3 (0.0-0.5); Eosinophils % (Auto) 1 % (0-10); Immature Granulocytes Auto 0.02 Thou/mm3 (0.00-0.00); Lymphocytes # (Auto) 1.8 Thou/mm3 (1.0-4.8); Lymphocytes % (Auto) 23 % (10-50); Mean Corpuscular HGB Conc 29.3 g/dl (31.0-37.0); Mean Corpuscular Hemoglobin 21.7 pg (25.0-35.0); Mean Corpuscular Volume 74 fL (80-100); Monocytes # (Auto) 0.4 Thou/mm3 (0.0-0.8); Monocytes % (Auto) 6 % (0-12); Neutrophils # (Auto) 5.2 Thou/mm3 (1.8-7.7); Neutrophils % (Auto) 70 % (37-80); Nucleated Red Blood Cell # 0.00 Thou/mm3 (0.00-0.00); Nucleated Red Blood Cell % 0 /100 WBC (0); Platelet Count 229 Thou/mm3 (140-440); RDW Standard Deviation 45.6 fL (36.4-46.3); Red Blood Count 2.54 Miln/mm3 (4.00-5.20); White Blood Count 7.5 Thou/mm3 (3.6-11.0)
[2025-03-23 13:57] LABS: Hemoglobin 5.5 g/dL (12.0-16.0)
[2025-03-23 13:58] LABS: Hematocrit 18.8 % (36.0-46.0)
[2025-03-23 14:08] LABS: INR 1.6 (0.9-1.3); Partial Thromboplastin Time 28.5 Seconds (22.0-36.0); Prothrombin Time 16.0 Seconds (9.0-12.2)
[2025-03-23 14:13] LABS: Alanine Aminotransferase 12 U/L (10-49); Albumin, Serum 3.3 gm/dL (3.5-5.0); Albumin/Globulin Ratio 0.8 (1.2-2.2); Alkaline Phosphatase 88 U/L (46-116); Anion Gap 10 (7-16); Aspartate Amino Transferase 48 U/L (0-34); BUN/Creatinine Ratio 7 Ratio (12-20); Bilirubin,Total 1.1 mg/dL (0.3-1.2); Blood Urea Nitrogen < 5 mg/dL (9-23); Calcium 8.3 mg/dL (8.3-10.6); Calcium (Corrected) 8.9 mg/dL (8.5-10.1); Carbon Dioxide 26.2 mMol/L (20.0-31.0); Chloride 101 mMol/L (98-107); Creatinine (Component) 0.7 mg/dL (0.6-1.3); Estimated Creatinine Clearance 99.0 mL/min (>60); Globulin 4.0 gm/dL (2.3-3.5); Glucose 98 mg/dL (74-106); Magnesium 1.3 mg/dL (1.6-2.6); Osmolality,Calculated 271 (275-295); Potassium 3.8 mMol/L (3.4-5.1); Sodium 137 mMol/L (136-145); Total Protein 7.3 gm/dL (5.7-8.2); eGFR > 60 See Note
[2025-03-23 14:27] LABS: HCG,Qualitative Serum Negative
--- NOTE | 2025-03-23 15:10 | ESHP_ITS ---
<Statement entered by Armaan Rolle MD - 03/24/25 16:33> Patient seen and examined at bedside. I discussed and supervised with the internet researcher physician who took care of this patient. I personally saw and examined the patient. I agree with most of the assessment and plan. Plan of care discussed with attending Dr. Cuevas. Armaan Rolle MD PGY-2 Documentation for date of: 03/23/25 HPI History of Present Illness Chief complaint: Anemia History of present illness: HPI: A 37-year-old female with significant past medical history of upper GI bleed secondary to H. pylori, gastritis, anemia post blood transfusions secondary to menorrhagia, alcohol use disorder, alcoholic liver disease presented to the hospital for follow up after being instructed by her PCP to go to hospital for low Hgb level. Patient reports diarrhea for 1 week, Pepto-Bismol did not help, however and an ammonium supplement improved her symptom. The diarrhea was described as running, and upon cleaning herself with a towel, she noted blood on the paper towel. The diarrhea by itself was bright red colored. She denies vomiting, but has felt nauseous. Patient reports weakness, and fatigue, unable to complete her job responsibilities. She feels lightheaded toward the end of the day. Previous endoscopy showed gastritis, and colonoscopy revealed hemorrhoids 2 out which were banded. Also reported that she is having mild abdominal pain, mainly in the epigastric and right upper quadrant area especially when she eats meals that have beef in it. Endorsed that she had heavy menstrual period's till last month that stopped as of now and patient is currently on hormonal implant. Starting 1 month ago, and after an URI, patient has had persistent cough which has recently been productive of a greenish sputum. Patient started root canal procedure, tooth, and has been prescribed ibuprofen for pain, which she has been taking 400 mg 2-3 times daily for 3 days. Patient also admits to urinary frequency, without dysuria. ED course: - Vitals are stable at the time of admission. - Labs are significant for WBC 7.5, Hgb 5.5, Mg 1.3, albumin 3.3, INR 1.5, sodium 134, AST 39, albumin 2.7 - UA positive for turbidity, positive leukocyte esterase, and 504 U WBC. ?Patient was administered 2 units of packed RBC Meds: Amoxicillin (course of 7 to 10 days, completed 2 days of), ibuprofen 400 mg every 8 hours, Flagyl, Pepto-Bismol. Allergy: PMHx: Upper GI bleed, anemia, blood transfusions, alcohol use disorder, alcoholic liver disease PSHx: Appendectomy, left hand fourth digit repair. Fam Hx: Testicular cancer and father, metastatic cancer in an aunt and uncle. Soc Hx: 1-2 tall beers every day, down from 6 beers daily previously, smokes marijuana 2-3 times daily, denies tobacco and other illicit drug abuse Review of Systems Review of Systems Systems Reviewed: All systems reviewed, normal except as documented Past Medical History Past Medical History NEUROLOGIC: Positive Migraine; Negative Neurological Disorders or Seizures CARDIAC: Positive Hypertension; Negative Cardiac Disorders, Angina, Atherosclerotic Heart Disease, Aneurysm or Congestive Heart Failure RESPIRATORY: Negative Chronic Obstructive Pulmonary Disease (COPD) or Asthma GASTROINTESTINAL: Positive Cirrhosis; Negative Gastrointestinal Disorders GENITOURINARY: Negative Genitourinary Disorders or Renal Disease MUSCULOSKELETAL: Negative Musculoskeletal Disorders ENDOCRINE: Negative Endocrine Disorders, Diabetes Mellitus Type 1 or Diabetes Mellitus Type 2 HEMATOLOGIC: Positive Anemia; Negative Sickle Cell Disease PSYCHO/SOCIAL: Positive Anxiety OTHER HISTORY: Positive Autoimmune Disease and Blood Transfusions; Negative Blood Transfusion Reaction, Anesthesia Reactions, Clostridium Difficile or Cancer Family History FAMILY HISTORY: Positive Family Cancer; Negative Family Psychiatric Problems, Family Respiratory Disorders, Family Cardiac Disorders or Family Gastrointestinal Problems Social History SMOKING STATUS: Never smoker SECOND HAND EXPOSURE: No SUBSTANCE USE: marijuana Exam Vital Signs Temp Pulse Resp BP Pulse Ox O2 Del Method 99.1 F 89 20 123/64 100 Room Air 03/23/25 15:03 03/23/25 15:03 03/23/25 15:03 03/23/25 15:03 03/23/25 15:03 03/23/25 15:03 Narrative Exam General: Awake. HEENT: Normocephalic, atraumatic, mucous membranes moist. healed rash from acne with erosions on forehead Heart: Regular rate and rhythm, no murmurs. Lungs: Clear to auscultation with no wheezing or crackles. Abdomen: Soft, nondistended, tenderness in right upper abdomen, positive bowel sounds. ?No guarding or rebound tenderness. Neurologic: Alert and oriented x3, no gross neurological deficit, and patient able to move all 4 extremities. Extremities: No edema. Skin: No rash or ecchymoses. Results: Labs 03/24/25 05:05 03/24/25 05:05 Labs: Short CBC 03/23/25 Range/Units 13:45 WBC 7.5 (3.6-11.0) Thou/mm3 Hgb 5.5 L* (12.0-16.0) g/dL Hct 18.8 L* (36.0-46.0) % Plt Count 229 (140-440) Thou/mm3 BMP 03/23/25 13:45 Sodium 137 Potassium 3.8 Chloride 101 Carbon Dioxide 26.2 BUN < 5 L Creatinine 0.7 Glucose 98 Calcium 8.3 Liver Function 03/23/25 Range/Units 13:45 Total Bilirubin 1.1 (0.3-1.2) mg/dL AST 48 H (0-34) U/L ALT 12 (10-49) U/L Alkaline Phosphatase 88 (46-116) U/L Albumin 3.3 L (3.5-5.0) gm/dL Quality Measures Quality Measures none Medications Home Medications and Allergies Home Medications ?Medication ?Instructions ?Recorded ?Confirmed ?Type Tums 2 tab PO TID 03/24/25 History amoxicillin 875 mg-potassium 1 tab PO Q12H 03/24/25 History clavulanate 125 mg tablet calcium 1 tab PO BID 03/24/25 History ibuprofen 800 mg tablet 400 mg PO TID PRN pain 03/2403/24/25 History magnesium 1 tab PO DAILY 03/24/2503/13 History melatonin 12 mg tablet 12 mg PO HS PRN sleep 03/24/25 History metronidazole 500 mg tablet 500 mg PO BID 03/24/2505/06 History lqccmpdyh-dytlvcgm-bqqfs-w.pet 1 applic DC QID PRN rec effie 03/24/25 03/24/25 History discomfort vitamin B12 1 tab PO DAILY 03/24/2503/13 History Allergies Allergy/AdvReac Type Severity Reaction Status Date / Time No Known Allergies Allergy Verified 03/23/25 13:18 Visit Medications Acetaminophen (Acetaminophen 325 Mg Tablet) 650 mg PO Q6H PRN PRN Reason: Fever >101.5 Stop: 11/10/24 05:41 Ondansetron HCl (Ondansetron Inj 2 Mg/Ml Inj 2 Ml) 4 mg IVP Q6H PRN; Protocol PRN Reason: NAUSEA OR VOMITING Stop: 11/10/24 05:41 Pantoprazole Sodium (Pantoprazole Inj 40 Mg Vial) 40 mg IVP QDAY BRAINA Stop: 11/10/24 08:59 Discontinued Medications Sodium Chloride (Ns) 1,000 mls @ 999 mls/hr IV .Q1H1M ONE Stop: 10/11/24 02:00 Last Infusion: 10/11/24 02:27 Dose: Infused Octreotide Acetate (Octreotide Acet Inj 50 Mcg/Ml Vial) 50 mcg IV X1 ONE Stop: 10/11/24 05:04 Last Admin: 10/11/24 05:37 Dose: 50 mcg Assessment & Plan Plan A 37-year-old female with significant past medical history of upper GI bleed secondary to H. pylori, gastritis, anemia post blood transfusions secondary to menorrhagia, alcohol use disorder, alcoholic liver disease, steatohepatitis presented to the hospital for follow up after being instructed by her PCP to go to hospital for low Hgb level. #Symptomatic anemia 2/2 acute blood loss #Microcytic Anemia #Internal hemorrhoids, s/p banding #Lower GI bleed #Bloody diarrhea Recent weakness, fatigue, inability to complete responsibilities at work. Noted bright red blood per rectum when wiping, but also diarrhea that appeared red. Patient also reports acute diarrhea, and subjective fevers. Hgb 5.5, and patient received 2u pRBC, after blood type and screen. MCV 74, patient on iron pills. Plan: ? GI, Dr. Wiggins, consulted, appreciate recs ? Ordered occult blood test ? Ceftriaxone IV 1 g daily and Flagyl p.o. 500 mg twice daily (03/23 - ) ? Post-transfusion H&H - ordered iron panel study. - ordered blood ctx #Steatohepatitis versus primary hepatocellular disease #Coagulopathy US RUQ (10/11) showed moderate hepatomegaly, fatty liver, suspicious of primary hepatocellular disease. PT 16, INR 1.6, and aPTT 28.5, albumin 3.3. AST 48. -continue to monitor coagulation factors as a measure of liver synthetic function. #Alcohol use disorder - CIWA protocol with Ativan 0.5, 1, and 2 mg for increasingly higher ranges on CIWA assessment. #UTI #Cervicitis Patient admits to urinary frequency, denies dysuria. Suprapubic tenderness noted on exam. UA positive for turbidity, positive leukocyte esterase, and 504 U WBC. Pt states pap smear performed by her OBGYN showed infection. Plan: ?Ordered UDS and U culture -Flagyl 500mg bid #Dental Pulp Necrosis Patient has been receiving outpatient dental care for root canal procedure. According to patient, has completed 2d course of 7-10d amoxicillin prescription #Hypomagnesemia Mg 1.3 -Replete in AM Health Maintenance: Disposition: Med telemetry Diet: CLD PPx DVT: SCD PPx GI: IV Protonix 40 mg twice daily Code Status: Full This case was discussed with my attending physician, Dr. Cuevas, and senior resident Darling Vivar. Enrico Mack, DO PGY I Attending Provider Attestation/Addendum I have seen and examined the patient. I was physically present for the pierre portions of the services provided including history, physical exam, diagnosis, treatment plans and orders. I agree with assessment and plan of care as documented by residents. After examination of the patient and review of the clinical data I feel that this patient needs admission to the hospital for further treatment/evaluation. Even though this this note was carefully revised there may still be minor errors in line dancer due to voice recognition software. La Cuevas MD
--- NOTE | 2025-03-23 15:33 | PC.SS ---
Patient is a 39 year old female presenting to the hospital for anemic, told to go to the ER last week. TURBO OPERATOR made face to face contact with patient at bedside. TURBO OPERATOR introduced self, role, and reason for visit. Patient confirmed demographic information and stated that she lives with her family. Patient stated that in case she is unable to make medical decisions on her own she would like her mother to make them, Holli Wood [phone]. Patient stated that she does not use any DME, her PCP is at [facility] and she had a visit last week. Patient stated that her preferred pharmacy is [facility] [address]. Patient stated that once medically clear she would like to return home and her family will provide transportation. PCP: [facility] Decision maker: Holli Wood [phone] D/c: home
--- NOTE | 2025-03-23 16:16 | XR_ITS ---
EXAMINATION: AP chest single view TECHNIQUE: AP upright portable chest single view Date and time: March 23, 2025, 1622 hours INDICATIONS: Shortness of breath today. FINDINGS: Normal heart size Lungs are clear. Osseous structures intact IMPRESSION: No active disease
--- NOTE | 2025-03-23 16:25 | PD.EDRECHK ---
ED Recheck Abnl Lab Rx-RME/HPI General Chief Complaint: General Adult/Misc Complain Stated Complaint: ANEMIC, TOLD TO GO TO E.D. LAST WEEK Time Seen by Provider: 03/23/25 14:02 Arrival date/time: 03/23/25 13:14 RME / HPI RME / HPI narrative: 03/23/25 13:14 39-year-old female everyday drinker presents the emergency department today stating that she was told to come to the ER for low hemoglobin last week DR. BERG MAIN ED EVALUATION 39 year old female with history of alcohol use, alcoholic liver disease, upper GI bleed secondary to H.pylori gastritis, anemia requiring blood transfusions presents to the ED referred by her PCP for blood transfusion today. Patient reports she had labs drawn by PCP several days ago and advised her hemoglobin was low. Patient states she has had rectal bleeding on/off for some time and noted to have hemorrhoids. States she has had the hemorrhoids banded by GI Dr. Wiggins, last colonoscopy and banding about 7 months ago. She additionally complains of rectal pain and discomfort beginning several days ago. Exam: On exam patient well-appearing does not appear ill or toxic patient reports no chest pain or shortness of breath Impression: Lab work ordered Related Data Home Medications ?Medication ?Instructions ?Recorded ?Confirmed Tums 2 tab PO TID 03/24/25 03/24/25 amoxicillin 875 mg-potassium 1 tab PO Q12H 03/24/25 03/24/25 clavulanate 125 mg tablet calcium 1 tab PO BID 03/24/25 03/24/25 ibuprofen 800 mg tablet 400 mg PO TID PRN pain 03/24/25 03/24/25 magnesium 1 tab PO DAILY 03/24/25 03/24/25 melatonin 12 mg tablet 12 mg PO HS PRN sleep 03/24/25 03/24/25 metronidazole 500 mg tablet 500 mg PO BID 03/24/25 03/24/25 ssgevfcyd-gldoblys-fkyop-w.pet 1 applic NJ QID PRN rectal 03/24/25 03/24/25 discomfort vitamin B12 1 tab PO DAILY 03/24/25 03/24/25 Previous Rx's ?Medication ?Instructions ?Recorded baclofen 20 mg tablet 20 mg PO BID PRN Muscle Spasms 30 10/09/23 days #60 tabs lidocaine 5 % topical cream 1 applic top QDAY PRN hemorrhoids 10/09/23 (RectaSmoothe) 30 days #1 tube lidocaine 5 % topical patch 1 patch top QDAY PRN abdominal 10/09/23 pain 30 days #30 ea melatonin 1 mg tablet 0.5 mg (1/2 x 1 mg) PO HS PRN 10/09/23 sleep #15 tabs pantoprazole 40 mg tablet,delayed 40 mg PO QDAY 60 days #60 tabs 10/10/23 release phenylephrine 0.25 %-mineral oil 1 applic NJ QDAY PRN hemorrhoids 10/10/23 14 %-petrolatm 74.9 % rectal #57 grams ointment (Hemorrhoidal(phenyleph-min oil-petrolat)) ferrous sulfate 325 mg (65 mg 325 mg PO Q48H 30 days #60 tabs 10/14/24 iron) tablet (iron) propranolol 10 mg tablet 10 mg PO BID #60 tabs 10/14/24 Allergies Allergy/AdvReac Type Severity Reaction Status Date / Time No Known Allergies Allergy Verified 03/23/25 13:18 Review of Systems Review of Systems Systems Reviewed: All systems reviewed, normal except as documented Past Medical History Past Medical History NEUROLOGIC: Positive Migraine CARDIAC: Positive Hypertension GASTROINTESTINAL: Positive Cirrhosis, Gastrointestinal Bleed and Hemorrhoids HEMATOLOGIC: Positive Anemia PSYCHO/SOCIAL: Positive Anxiety Family History FAMILY HISTORY: Positive Family Cancer (PT'S AUNT STOMACH CANCER) Social History SMOKING STATUS: Never smoker SECOND HAND EXPOSURE: No SUBSTANCE USE: marijuana ED Exam Narrative Physical exam: GENERAL APPEARANCE: alert and oriented x 4, well-developed, well-nourished, no acute distress HEENT: Normocephalic, atraumatic; pupils equal, round, reactive to light; EOMI; mucous membranes pink, moist; oropharynx clear NECK: Supple LUNGS: CTABL; no wheezes, no rales, no rhonchi HEART: Regular rate, regular rhythm; normal S1, S2; no murmurs ABDOMEN: non distended; normal BS; soft, no tenderness, no guarding, no rebound; no masses, no organomegaly, no hernia RECTAL: skin tags, no active bleeding, no external hemorrhoids BACK: no CVA tenderness EXTREMITIES: atraumatic; no edema NEUROLOGIC: awake; alert and oriented x4; cranial nerves II-XII grossly intact; no focal sensory or motor deficits PSYCHIATRIC: appropriate mood and affect SKIN: warm, dry, normal color; no rashes Course Course Course Narrative: 1504: I spoke with GI Dr. Wiggins. Discussed patients PMHx, HPI, ED course, exam findings, labs results. He agrees to consult. States he will perform colonoscopy tomorrow. 1507: I spoke with hospitalist team B for admission. Quality Measures none Orders Category Date Time Status Admit to Inpatient Status Routine Admission 03/23/25 16:08 Active Patient Condition Routine Admission 03/23/25 16:08 Ordered Activity as Tolerated Routine Care 03/23/25 16:10 Ordered Continuous Pulse Oximetry NOW Care 03/23/25 16:08 Completed Insert IV NOW Care 03/23/25 14:44 Active Notify provider NEEDED Care 03/23/25 16:08 Active Obtain weight daily Care 03/23/25 16:10 Active Sequential Compression Device QSHIFT Care 03/23/25 16:13 Active Transfuse,blood/blood products NOW Care 03/23/25 14:39 Active Consult to Gastroenterology Stat Cons 03/23/25 15:05 Ordered XR chest 1V portable Routine Exams 03/23/25 16:16 Completed CBC AM DRAW Lab 03/24/25 05:05 Completed CBC AM DRAW Lab 03/25/25 05:00 Ordered CBC AM DRAW Lab 03/26/25 05:00 Ordered CBC Stat Lab 03/23/25 13:45 Completed Comprehensive Metabolic Panel AM DRAW Lab 03/24/25 05:05 Completed Comprehensive Metabolic Panel AM DRAW Lab 03/25/25 05:00 Ordered Comprehensive Metabolic Panel AM DRAW Lab 03/26/25 05:00 Ordered Comprehensive Metabolic Panel Stat Lab 03/23/25 13:45 Completed HCG,Qualitative Serum Stat Lab 03/23/25 13:45 Completed Lipid Panel AM DRAW Lab 03/24/25 05:05 Completed Mag [Magnesium] Stat Lab 03/23/25 13:45 Completed Magnesium AM DRAW Lab 03/24/25 05:05 Completed Magnesium AM DRAW Lab 03/25/25 05:00 Ordered Magnesium AM DRAW Lab 03/26/25 05:00 Ordered Partial Thromboplastin Time AM DRAW Lab 03/24/25 05:05 Completed Partial Thromboplastin Time Stat Lab 03/23/25 13:45 Completed Path Review Blood Smear Stat Lab 03/23/25 13:45 Completed Phosphorous AM DRAW Lab 03/24/25 05:05 Completed Phosphorous AM DRAW Lab 03/25/25 05:00 Ordered Phosphorous AM DRAW Lab 03/26/25 05:00 Ordered Prothrombin Time with INR AM DRAW Lab 03/24/25 05:05 Completed Prothrombin Time with INR Stat Lab 03/23/25 13:45 Completed Red Blood Cells Stat Lab 03/23/25 13:45 Completed Sputum Culture and Gram Stain Routine Lab 03/23/25 16:15 Stop Req Thyroid Stimulating Hormone AM DRAW Lab 03/24/25 05:05 Completed Type and Screen Stat Lab 03/23/25 13:45 Completed Urine Culture Routine Lab 03/23/25 22:05 Received Acetaminophen Tab [Tylenol Tab] Med 03/23/25 16:08 Active 500 mg PO Q6H PRN HYDROcodone*/APAP 5/325 [[employer] 5/325] Med 03/23/25 16:13 Active 1 tab PO Q4HR PRN HYDROcodone/APAP 10/325 [[employer] 10/325] Med 03/23/25 16:13 Discontinued 1 tab PO Q4HR PRN Ondansetron Inj [Zofran Inj] Med 03/23/25 16:08 Active 4 mg IVP Q6H PRN Pantoprazole [Protonix] Med 03/23/25 21:00 Discontinued 40 mg PO Q12HR Sodium Chloride Rt Lissette 10% [NS Rt Lissette 10%] Med 03/23/25 16:13 Discontinued 5 ml INH X1 ONE Code Status Routine Oth 03/23/25 16:08 Ordered Sputum Induction PRN RT 03/23/25 16:15 Ordered Vital Signs Vital signs: Vital Signs Temperature 99.8 F 03/23/25 13:33 Pulse Rate 94 03/23/25 13:33 Respiratory Rate 16 03/23/25 13:33 Blood Pressure 117/80 03/23/25 13:33 Pulse Oximetry (%) 98 03/23/25 13:33 Oxygen Delivery Method Room Air 03/23/25 13:33 Pulse ox is 98% on room air which is adequate. Recheck / Abnormal Lab / Rx MDM Narrative MDM Narrative:: Cecilia Arias am scribing for and in the presence of Dr. Berg. Patient data External records reviewed:: [facility] previous records Clinical information provided by:: patient Social determinants that could affect healthcare access:: none Patient has the following chronic illnesses:: alcohol use, alcoholic liver disease, upper GI bleed secondary to H.pylori gastritis, anemia requiring blood transfusions How is presenting disease/condition affected by chronic disease/condition?: exacerbated by Evaluation data The following diagnostics were reviewed and interpreted by me:: lab results Lab and/or radiology exams considered but not ordered:: None Interpretation Summary: Ordering Physician: Enrico Mack Date of Service: 03/23/25 Procedure(s): XR chest 1V portable Accession Number(s): [id number] cc: Enrico Mack; Surjit Monroy MD; NO PRIMARY/FAMILY,PHYSICIAN~ EXAMINATION: AP chest single view TECHNIQUE: AP upright portable chest single view Date and time: March 23, 2025, 1622 hours INDICATIONS: Shortness of breath today. FINDINGS: Normal heart size Lungs are clear. Osseous structures intact IMPRESSION: No active disease Dictated By: Surjit Monroy MD Signed By: <Electronically signed by Surjit Monroy MD in OV> 03/23/25 1658 Medications / Prescriptions Medications or Prescriptions considered but not ordered:: None Medication administrations:: Medication Administration History Acetaminophen (Acetaminophen 325 Mg Tablet) 500 mg PO Q6H PRN PRN Reason: Fever >100.4 or pain 1-07/20 Stop: 04/22/25 16:07 Hydrocodone Bitart/Acetaminophen (Hydrocodone/Apap 5/325 Tablet) 1 tab PO Q4HR PRN PRN Reason: PAIN SCALE 4-6 (Moderate Stop: 03/28/25 16:12 Last Admin: 03/24/25 13:37 Dose: 1 tab Documented By: Admin: 03/24/25 09:15 Dose: 1 tab Documented By: Admin: 03/24/25 01:50 Dose: 1 tab Documented By: Admin: 03/23/25 17:08 Dose: 1 tab Documented By: LAZ Baclofen (Baclofen 10 Mg Tablet) 20 mg PO BID [facility] Stop: 04/22/25 20:59 Last Admin: 03/24/25 09:15 Dose: 20 mg Documented By: Admin: 03/23/25 21:56 Dose: 20 mg Documented By: CTF Ceftriaxone Sodium/Dextrose (Rocephin/D5w 1gm Iv Premix) 1 gm in 50 mls @ 100 mls/hr IV QDAY BRIANA Stop: 03/30/25 16:39 Last Admin: 03/24/25 08:23 Dose: 100 mls/hr Documented By: Infusion: 03/23/25 23:03 Dose: Infused Documented By: Admin: 03/23/25 22:33 Dose: 100 mls/hr Documented By: SUSI Lidocaine (Lidocaine 5% 1 Patch) 1 patch TOP UD PRN PRN Reason: PAIN Stop: 04/23/25 09:57 Last Admin: 03/24/25 10:35 Dose: 1 patch Documented By: CLARISSA Lorazepam (Lorazepam 0.5 Mg Tablet) 2 mg PO Q4HR PRN PRN Reason: CIWA SCORE 15-19 Stop: 03/28/25 17:40 Lorazepam (Lorazepam 0.5 Mg Tablet) 0.5 mg PO Q4HR PRN PRN Reason: CIWA Score 5-9 Stop: 03/28/25 17:40 Last Admin: 03/24/25 01:56 Dose: 0.5 mg Documented By: SUSI Lorazepam (Lorazepam 0.5 Mg Tablet) 1 mg PO Q4HR PRN PRN Reason: CIWA SCORE 10-14 Stop: 03/28/25 17:40 Metronidazole (Metronidazole 250 Mg Tablet) 500 mg PO BID [facility] Stop: 03/30/25 20:59 Last Admin: 03/24/25 09:15 Dose: 500 mg Documented By: Admin: 03/23/25 21:56 Dose: 500 mg Documented By: SUSI Ondansetron HCl (Ondansetron Inj 2 Mg/Ml Inj 2 Ml) 4 mg IVP Q6H PRN; Protocol PRN Reason: NAUSEA OR VOMITING Stop: 04/22/25 16:07 Last Admin: 03/24/25 13:43 Dose: 4 mg Documented By: Admin: 03/23/25 20:03 Dose: 4 mg Documented By: SUSI Pantoprazole Sodium (Pantoprazole Inj 40 Mg Vial) 40 mg IVP BID [facility] Stop: 04/22/25 20:59 Last Admin: 03/24/25 08:23 Dose: 40 mg Documented By: Admin: 03/23/25 21:33 Dose: 40 mg Documented By: SUSI Discontinued Medications Hydrocodone Bitart/Acetaminophen (Hydrocodone/Apap 10/325 Tab) 1 tab PO Q4HR PRN PRN Reason: PAIN SCALE 7-10 (Severe Stop: 03/28/25 16:12 Magnesium Sulfate (Magnesium Sulfate Ivpb) 4 gm in 50 mls @ 12.5 mls/hr IV X1 ONE Stop: 03/23/25 23:16 Last Admin: 03/23/25 21:31 Dose: 12.5 mls/hr Documented By: CTF Influenza Virus Vaccine Quadrival (Influenza Virus 0.5 Ml Syringe ) 0.5 ml IMi .ONCE ONE Stop: 03/24/25 01:26 Lorazepam (Lorazepam 0.5 Mg Tablet) 0.5 mg PO Q4HR PRN PRN Reason: CIWA Score 5-9 Stop: 03/28/25 17:40 Lorazepam (Lorazepam 0.5 Mg Tablet) 1 mg PO Q4HR PRN PRN Reason: CIWA SCORE 10-14 Stop: 03/28/25 17:40 Pantoprazole Sodium (Pantoprazole 40 Mg Tablet) 40 mg PO Q12HR BRIANA Stop: 04/22/25 20:59 Sodium Chloride (Sodium Chloride Rt 10% 15 Ml Nebu) 5 ml INH X1 ONE Stop: 03/23/25 16:14 Last Admin: 03/24/25 00:27 Dose: Not Given Documented By: EMR Non-Admin Reason: Discontinued See above Consultations Consultation(s) initiated? (list below): Yes Consultation #1 (Physician, Specialty, Details): See course Diagnosis Recheck Differential Diagnosis: other (anemia, weakness, hemorrhoids, GI bleed) Most likely diagnosis given after review of the tests above:: Anemia Rectal bleed Hemorrhoids Admission Indicated Admission indicated?: indicated Admission Request Was there a request for admission?: Yes Admission Attestation Admission request attestation: Discussed case with [] from Hospitalist service regarding admission. Discussed patients ED course, exam findings, labs, and radiology results. The Hospitalist [agrees,declines] to accept the patient for admission. Disposition Plan Disposition Plan: Admit Discharge Plan Plan Patient Disposition: Admit Acute Care w/in Hospital Problem List Clinical Impression: Anemia, Rectal bleed, Hemorrhoids
[2025-03-23 16:59] LABS: Path Review Blood Smear Sent to Pathologist
[2025-03-23 17:06] LABS: Iron < 5 mcg/dL (50-170); Percent Iron Saturation 1 % (20-55); Total Iron Binding Capacity 328 mcg/dL (250-425); Unsaturated Iron Binding 323 (225-295)
[2025-03-23] MEDS: HYDROcodone/APAP 5/325 TABLET 1 TAB PO (17:08)
--- NOTE | 2025-03-23 19:10 | PD.IMCONS ---
HPI Data of Consult Requesting Physician: La Cuevas MD Primary Care Provider: Physician No Primary/Family Consult Narrative Reason for consult: Bleeding per rectum iron saturation 1% H/H 5.5 18.8 History of present illness: 39 years of female presented to the emergency room at the request of her primary care physician and was told she has low hemoglobin hematocrit She had episodes of bleeding per rectum with a red stool according to her Hemoglobin hematocrit checked was 5.5 and 18.8 She quit drinking for about few months and then started back on it last 2 months drink about 3 beers a day medium sized cans On 10/14/2024 it was 8.1 and 25.7 She has known to me before her prior admission and on 10/11/2024 had undergone upper endoscopy which showed grade 1 varices erythema of the antrum Colonoscopy showed banding of the internal hemorrhoids in total 3 bands were put in patients under very well since then During a previous admission she was also having menorrhagia Patient has a long history of drinking alcohol cc:: cc: La Cuevas MD Review of Systems Review of Systems Systems Reviewed: All systems reviewed, normal except as documented Meds Home Medications and Allergies Allergies Allergy/AdvReac Type Severity Reaction Status Date / Time No Known Allergies Allergy Verified 03/23/25 13:18 Exam Vital Signs Temp Pulse Resp BP Pulse Ox O2 Del Method 97.4 F 88 18 119/75 100 Room Air 03/23/25 18:48 03/23/25 18:48 03/23/25 18:48 03/23/25 18:48 03/23/25 16:42 03/23/25 16:12 Constitutional Comments: Chronically ill-appearing Routine Respiratory Exam Comments: Normal to auscultation Routine Abdominal Exam Comments: Soft nontender Results Labs 03/23/25 13:45 03/23/25 13:45 Labs: Short CBC 03/23/25 Range/Units 13:45 WBC 7.5 (3.6-11.0) Thou/mm3 Hgb 5.5 L* (12.0-16.0) g/dL Hct 18.8 L* (36.0-46.0) % Plt Count 229 (140-440) Thou/mm3 BMP 03/23/25 13:45 Sodium 137 Potassium 3.8 Chloride 101 Carbon Dioxide 26.2 BUN < 5 L Creatinine 0.7 Glucose 98 Calcium 8.3 Liver Function 03/23/25 Range/Units 13:45 Total Bilirubin 1.1 (0.3-1.2) mg/dL AST 48 H (0-34) U/L ALT 12 (10-49) U/L Alkaline Phosphatase 88 (46-116) U/L Albumin 3.3 L (3.5-5.0) gm/dL Assessment and Plan Additional Assessment & Plan Additional Plan: # Hematochezia # iron deficiency anemia Plan Fleet enemas in the morning on-call to endoscopy Will reband the internal hemorrhoids Since patient has been taking ibuprofen for a toothache She might have a mixed picture with dropping her hemoglobin to 5.5 g and hematocrit of 18.8 Will also consent for upper endoscopy at the same time Consent obtained for both flexible sigmoidoscopy with banding of the internal hemorrhoids and fiberoptic esophagogastroduodenoscopy with possible biopsy possible therapeutic intervention under intravenous moderate sedation Thank you for the opportunity to participate in the care of this patient Start the patient on iron supplement along with vitamin C
[2025-03-23] MEDS: ONDANSETRON INJ 2 MG/ML INJ 2 ML 4 MG IVP (20:03)
[2025-03-23] MEDS: Magnesium Sulfate 4 GM Ivpb 4 GM/50 ML BAG IV (21:31)
[2025-03-23] MEDS: BACLOFEN 10 MG TABLET 20 MG PO (21:56)
[2025-03-23 22:17] LABS: OBS Card Lot # 124; OBS Developer Expiration Date 2027-02-28; OBS Developer Lot # 424; OBS Performed By fabic; OBS QC OK? Yes; Occult Blood, Stool Negative (Negative)
[2025-03-23] MEDS: cefTRIAXone/D5w 1gm IV premix 1 GM/50 ML BAG IV (22:33)
[2025-03-23 22:38] LABS: Amphetamine/Methamp Scrn,U Negative (Negative); Barbiturate Screen,Urine Negative (Negative); Benzodiazepines Screen,Urine Negative (Negative); Benzoylecgonine Screen, Ur Negative (Negative); Fentanyl Screen,Urine Negative (Negative); Opiate Screen,Urine Positive (Negative); THC Screen,Urine Positive (Negative)
[2025-03-24] VITALS (19 sets, daily range): BP systolic 96–135; BP diastolic 54–104; PULSE 67–92; RESP 11–22; TEMP 36.1–36.6; O2SAT 98–100
[2025-03-24] MEDS: HYDROcodone/APAP 5/325 TABLET 1 TAB PO ×4 (01:50→21:01)
[2025-03-24 06:09] LABS: Basophils # (Auto) 0.0 Thou/mm3 (0.0-0.2); Basophils % (Auto) 1 % (0-2.5); Eosinophils # (Auto) 0.1 Thou/mm3 (0.0-0.5); Eosinophils % (Auto) 1 % (0-10); Hematocrit 21.5 % (36.0-46.0); Immature Granulocytes Auto 0.01 Thou/mm3 (0.00-0.00); Lymphocytes # (Auto) 1.3 Thou/mm3 (1.0-4.8); Lymphocytes % (Auto) 28 % (10-50); Mean Corpuscular HGB Conc 30.2 g/dl (31.0-37.0); Mean Corpuscular Hemoglobin 22.3 pg (25.0-35.0); Mean Corpuscular Volume 74 fL (80-100); Monocytes # (Auto) 0.3 Thou/mm3 (0.0-0.8); Monocytes % (Auto) 6 % (0-12); Neutrophils # (Auto) 2.9 Thou/mm3 (1.8-7.7); Neutrophils % (Auto) 64 % (37-80); Nucleated Red Blood Cell # 0.00 Thou/mm3 (0.00-0.00); Nucleated Red Blood Cell % 0 /100 WBC (0); Platelet Count 155 Thou/mm3 (140-440); RDW Standard Deviation 48.8 fL (36.4-46.3); Red Blood Count 2.92 Miln/mm3 (4.00-5.20); White Blood Count 4.5 Thou/mm3 (3.6-11.0)
[2025-03-24 06:32] LABS: Hemoglobin 6.5 g/dL (12.0-16.0)
[2025-03-24 06:39] LABS: Alanine Aminotransferase 10 U/L (10-49); Albumin, Serum 3.0 gm/dL (3.5-5.0); Albumin/Globulin Ratio 0.9 (1.2-2.2); Alkaline Phosphatase 79 U/L (46-116); Anion Gap 10 (7-16); Aspartate Amino Transferase 35 U/L (0-34); BUN/Creatinine Ratio 7 Ratio (12-20); Bilirubin,Total 2.6 mg/dL (0.3-1.2); Blood Urea Nitrogen < 5 mg/dL (9-23); Calcium 8.0 mg/dL (8.3-10.6); Calcium (Corrected) 8.8 mg/dL (8.5-10.1); Carbon Dioxide 26.6 mMol/L (20.0-31.0); Cardiac Risk Estimate 2.7 RATIO (3.7-5.6); Chloride 104 mMol/L (98-107); Cholesterol 105 mg/dL (132-200); Creatinine (Component) 0.7 mg/dL (0.6-1.3); Estimated Creatinine Clearance 99.0 mL/min (>60); Globulin 3.5 gm/dL (2.3-3.5); Glucose 88 mg/dL (74-106); HDL Cholesterol 39 mg/dL (40-60); LDL Cholesterol,Calculated 52 mg/dL (0-130); Magnesium 2.4 mg/dL (1.6-2.6); Osmolality,Calculated 277 (275-295); Phosphorous 3.1 mg/dL (2.4-5.1); Potassium 3.6 mMol/L (3.4-5.1); Sodium 141 mMol/L (136-145); Thyroid Stimulating Hormone 7.99 uIU/mL (0.55-4.78); Total Protein 6.5 gm/dL (5.7-8.2); Triglycerides 71 mg/dL (30-150); eGFR > 60 See Note
[2025-03-24 06:47] LABS: INR 1.5 (0.9-1.3); Partial Thromboplastin Time 29.3 Seconds (22.0-36.0); Prothrombin Time 15.4 Seconds (9.0-12.2)
[2025-03-24] MEDS: cefTRIAXone/D5w 1gm IV premix 1 GM/50 ML BAG IV (08:23)
--- NOTE | 2025-03-24 09:10 | PC.SS ---
Follow up note: Pending EGD and Colonoscopy. Requiring blood transfusion. Pt will return home upon dc.
[2025-03-24] MEDS: BACLOFEN 10 MG TABLET 20 MG PO ×2 (09:15→20:53)
[2025-03-24 10:16] LABS: Ferritin 5 ng/mL (7.3-270.7)
[2025-03-24] MEDS: LIDOCAINE 5% 1 PATCH TOP (10:35)
[2025-03-24] MEDS: ONDANSETRON INJ 2 MG/ML INJ 2 ML 4 MG IVP (13:43)
--- NOTE | 2025-03-24 17:57 | ESPR_ITS ---
<Statement entered by Florence Zhang MD - 03/25/25 19:40> Patient was seen and examined at bedside. I agree on the assessment and plan on this note as documented by resident Dr Enrico Mack DO PGY1. 37-year-old female with past medical history as below admitted for GI bleed workup, patient does have underlying hepatocellular disease high suspicion of cirrhosis, does receive blood transfusion outpatient, patient's underlying etiology for anemia is likely multifactorial in addition to possible GI bleed will benefit from outpatient follow-up with hematology. Patient started on ceftriaxone and Flagyl for management of bloody diarrhea. Was started on CIWA protocol due to history of alcohol use disorder. Otherwise patient does not have any complaints today, is scheduled for EGD and sigmoidoscopy by gastroenterology today. Case discussed with attending Dr. La Zhang MD PGY-2 Documentation for date of: 03/24/25 Subjective Subjective Interval history: Patient was seen and examined at bedside. No acute events took place overnight. Patient states that blood is found over her stool and on the wipe and not intermixed with the formed content. Diarrhea resolved and patient has been afebrile. Continues to have RUQ pain, intermittently for two week. Lidocaine patches helped before and will be provided to her inpatient. Patient on CLD in anticipation of EGD and sigmoidoscopy tonight. Exam Vital Signs Temp Pulse Resp BP Pulse Ox O2 Del Method O2 Flow Rate 97.4 F 75 14 116/84 100 Room Air 0 03/24/25 16:00 03/24/25 16:00 03/24/25 16:00 03/24/25 16:00 03/24/25 16:00 03/24/25 16:00 03/23/25 21:20 Narrative Exam General: Awake. HEENT: Normocephalic, atraumatic, mucous membranes moist. healed rash from acne with erosions on forehead Heart: Regular rate and rhythm, no murmurs. Lungs: Clear to auscultation with no wheezing or crackles. Abdomen: Soft, nondistended, tenderness in right upper abdomen, positive bowel sounds. ?No guarding or rebound tenderness. Neurologic: Alert and oriented x3, no gross neurological deficit, and patient able to move all 4 extremities. Extremities: No edema. Skin: No rash or ecchymoses. Objective Labs 03/25/25 05:10 03/25/25 05:10 Labs: Laboratory Results - last 24 hr 03/23/25 03/23/25 03/23/25 13:45 21:48 21:50 WBC RBC Hgb Hct MCV MCH MCHC RDW Std Deviation Plt Count Neut % (Auto) Lymph % (Auto) [place] % (Auto) Eos % (Auto) Baso % (Auto) Neut # (Auto) Lymph # (Auto) [place] # (Auto) Eos # (Auto) Baso # (Auto) Immature Gran # (Auto) Absolute Nucleated RBC Immature Gran % Nucleated RBC % PT INR APTT Sodium Potassium Chloride Carbon Dioxide Anion Gap BUN Creatinine Estim Creat Clear Calc eGFR BUN/Creatinine Ratio Glucose Calculated Osmolality Calcium Corrected Calcium Phosphorus Magnesium Ferritin Total Bilirubin AST ALT Alkaline Phosphatase Total Protein Albumin Globulin Albumin/Globulin Ratio Triglycerides Cholesterol LDL Cholesterol, Calc HDL Cholesterol Cholesterol/HDL Ratio TSH Stool Occult Blood Negative Urine Opiates Screen Positive A Urine Fentanyl Screen Negative Ur Barbiturates Screen Negative U Amphetamin/Meth Scrn Negative U Benzodiazepines Scrn Negative U Cocaine Metab Screen Negative U Marijuana (THC) Screen Positive A Blood Type O Positive Antibody Screen NEGATIVE Crossmatch See Detail Blood Bank Wristband ID Yes 03/24/25 05:05 WBC 4.5 RBC 2.92 L Hgb 6.5 L* Hct 21.5 L* MCV 74 L MCH 22.3 L MCHC 30.2 L RDW Std Deviation 48.8 H Plt Count 155 D Neut % (Auto) 64 Lymph % (Auto) 28 [place] % (Auto) 6 Eos % (Auto) 1 Baso % (Auto) 1 Neut # (Auto) 2.9 Lymph # (Auto) 1.3 [place] # (Auto) 0.3 Eos # (Auto) 0.1 Baso # (Auto) 0.0 Immature Gran # (Auto) 0.01 H Absolute Nucleated RBC 0.00 Immature Gran % 0 Nucleated RBC % 0 PT 15.4 H INR 1.5 H APTT 29.3 Sodium 141 Potassium 3.6 Chloride 104 Carbon Dioxide 26.6 Anion Gap 10 BUN < 5 L Creatinine 0.7 Estim Creat Clear Calc 99.0 eGFR > 60 BUN/Creatinine Ratio 7 L Glucose 88 Calculated Osmolality 277 Calcium 8.0 L Corrected Calcium 8.8 Phosphorus 3.1 Magnesium 2.4 Ferritin 5 L Total Bilirubin 2.6 H D AST 35 H ALT 10 Alkaline Phosphatase 79 Total Protein 6.5 Albumin 3.0 L Globulin 3.5 Albumin/Globulin Ratio 0.9 L Triglycerides 71 Cholesterol 105 L LDL Cholesterol, Calc 52 HDL Cholesterol 39 L Cholesterol/HDL Ratio 2.7 L TSH 7.99 H Stool Occult Blood Urine Opiates Screen Urine Fentanyl Screen Ur Barbiturates Screen U Amphetamin/Meth Scrn U Benzodiazepines Scrn U Cocaine Metab Screen U Marijuana (THC) Screen Blood Type Antibody Screen Crossmatch Blood Bank Wristband ID Quality Measures Quality Measures none Assessment & Plan Assessment Current Active Medications: Generic Name Dose Route Start Last Admin Trade Name Freq PRN Reason Stop Dose Admin Acetaminophen 500 mg 03/23/25 16:08 Acetaminophen 325 Mg Tablet PO 04/22/25 16:07 Q6H PRN Fever >100.4 or pain 1-07/20 Hydrocodone Bitart/Acetaminophen 1 tab 03/23/25 16:13 03/24/25 13:37 Hydrocodone/Apap 5/325 Tablet PO 03/28/25 16:12 1 tab Q4HR PRN Administration PAIN SCALE 4-6 (Moderate Baclofen 20 mg 03/23/25 21:00 03/24/25 09:15 Baclofen 10 Mg Tablet PO 04/22/25 20:59 20 mg BID BRIANA Administration Ceftriaxone Sodium/Dextrose 1 gm in 50 mls @ 100 mls/hr 03/23/25 16:40 03/24/25 08:23 Rocephin/D5w 1gm Iv Premix IV 03/30/25 16:39 100 mls/hr QDAY BRIANA Administration Lidocaine 1 patch 03/24/25 09:58 03/24/25 10:35 Lidocaine 5% 1 Patch TOP 04/23/25 09:57 1 patch UD PRN Administration PAIN Lorazepam 2 mg 03/23/25 17:41 Lorazepam 0.5 Mg Tablet PO 03/28/25 17:40 Q4HR PRN CIWA SCORE 15-19 Lorazepam 0.5 mg 03/23/25 17:46 03/24/25 01:56 Lorazepam 0.5 Mg Tablet PO 03/28/25 17:40 0.5 mg Q4HR PRN Administration CIWA Score 5-9 Lorazepam 1 mg 03/23/25 17:46 Lorazepam 0.5 Mg Tablet PO 03/28/25 17:40 Q4HR PRN CIWA SCORE 10-14 Metronidazole 500 mg 03/23/25 21:00 03/24/25 09:15 Metronidazole 250 Mg Tablet PO 03/30/25 20:59 500 mg BID BRIANA Administration Ondansetron HCl 4 mg 03/23/25 16:08 03/24/25 13:43 Ondansetron Inj 2 Mg/Ml Inj 2 Ml IVP 04/22/25 16:07 4 mg Q6H PRN Administration NAUSEA OR VOMITING Protocol Pantoprazole Sodium 40 mg 03/23/25 21:00 03/24/25 08:23 Pantoprazole Inj 40 Mg Vial IVP 04/22/25 20:59 40 mg BID BRIANA Administration Plan A 37-year-old female with significant past medical history of upper GI bleed secondary to H. pylori, gastritis, anemia post blood transfusions secondary to menorrhagia, alcohol use disorder, alcoholic liver disease, steatohepatitis presented to the hospital for follow up after being instructed by her PCP to go to hospital for low Hgb level. #Symptomatic anemia 2/2 acute blood loss #Microcytic Anemia #Iron Deficiency Anemia #Internal hemorrhoids, s/p banding #Lower GI bleed #Bloody diarrhea Recent weakness, fatigue, inability to complete responsibilities at work. Noted bright red blood per rectum when wiping, but also diarrhea that appeared red. Patient also reports acute diarrhea, and subjective fevers. Hgb 5.5, and patient received 2u pRBC, after blood type and screen. MCV 74, patient on iron pills. FOBT negative. iron <5, iron sat 1%L, unsat iron binding 323H, ferretin 5L. Hgb 6.5, patient will receive 1u pRBC Plan: ? GI, Dr. Wiggins, consulted, appreciate recs - pending EGD and sigmoidoscopy tonight. ? Ceftriaxone IV 1 g daily and Flagyl p.o. 500 mg twice daily (03/23 - ) - ordered iron panel study. - ordered blood ctx #Steatohepatitis versus primary hepatocellular disease #Coagulopathy US RUQ (10/11) showed moderate hepatomegaly, fatty liver, suspicious of primary hepatocellular disease. PT 16, INR 1.6, and aPTT 28.5, albumin 3.3. AST 48. -continue to monitor coagulation factors as a measure of liver synthetic function. #Alcohol use disorder - CIWA protocol with Ativan 0.5, 1, and 2 mg for increasingly higher ranges on CIWA assessment. #UTI #Cervicitis Patient admits to urinary frequency, denies dysuria. Suprapubic tenderness noted on exam. UA positive for turbidity, positive leukocyte esterase, and 504 U WBC. Pt states pap smear performed by her OBGYN showed infection. UDS positive for opiates and marijuana. Plan: ?Ordered U culture -Flagyl 500mg bid #Dental Pulp Necrosis Patient has been receiving outpatient dental care for root canal procedure. According to patient, has completed 2d course of 7-10d amoxicillin prescription #Hypomagnesemia, resolved Mg 1.3 -Replete in AM Health Maintenance: Disposition: Med telemetry Diet: CLD PPx DVT: SCD PPx GI: IV Protonix 40 mg twice daily Code Status: Full This case was discussed with my attending physician, Dr. Cuevas, and senior resident Vicente. Enrico Mack, DO PGY I Attending Provider Attestation/Addendum I have seen and examined the patient. I was physically present for the pierre portions of the services provided including history, physical exam, diagnosis, treatment plans and orders. I agree with assessment and plan of care as documented by residents. Even though this this note was carefully revised there may still be minor errors in receiving lead due to voice recognition software. La Cuevas MD
[2025-03-25] VITALS (8 sets, daily range): BP systolic 105–122; BP diastolic 66–82; PULSE 75–90; RESP 16–22; TEMP 36–37.2; O2SAT 99–100
[2025-03-25] MEDS: HYDROcodone/APAP 5/325 TABLET 1 TAB PO ×4 (01:37→19:36)
[2025-03-25 06:37] LABS: Basophils # (Auto) 0.0 Thou/mm3 (0.0-0.2); Basophils % (Auto) 1 % (0-2.5); Eosinophils # (Auto) 0.1 Thou/mm3 (0.0-0.5); Eosinophils % (Auto) 2 % (0-10); Hematocrit 24.0 % (36.0-46.0); Immature Granulocytes Auto 0.03 Thou/mm3 (0.00-0.00); Immature Reticulocyte Fraction 33.4 % (3.0-15.9); Lymphocytes # (Auto) 1.2 Thou/mm3 (1.0-4.8); Lymphocytes % (Auto) 30 % (10-50); Mean Corpuscular HGB Conc 31.7 g/dl (31.0-37.0); Mean Corpuscular Hemoglobin 23.9 pg (25.0-35.0); Mean Corpuscular Volume 76 fL (80-100); Monocytes # (Auto) 0.2 Thou/mm3 (0.0-0.8); Monocytes % (Auto) 6 % (0-12); Neutrophils # (Auto) 2.4 Thou/mm3 (1.8-7.7); Neutrophils % (Auto) 60 % (37-80); Nucleated Red Blood Cell # 0.00 Thou/mm3 (0.00-0.00); Nucleated Red Blood Cell % 0 /100 WBC (0); Platelet Count 158 Thou/mm3 (140-440); RDW Standard Deviation 50.7 fL (36.4-46.3); Red Blood Count 3.18 Miln/mm3 (4.00-5.20); Reticulocyte % (Auto) 2.1 % (0.5-1.5); Reticulocyte Absolute Auto 67.7 Biln/L (25.0-75.0); Reticulocyte Hgb Content 23.2 pg (28.0-35.0); White Blood Count 4.0 Thou/mm3 (3.6-11.0)
[2025-03-25 06:38] LABS: Hemoglobin 7.6 g/dL (12.0-16.0)
[2025-03-25 06:57] LABS: Alanine Aminotransferase 7 U/L (10-49); Albumin, Serum 3.0 gm/dL (3.5-5.0); Albumin/Globulin Ratio 0.8 (1.2-2.2); Alkaline Phosphatase 74 U/L (46-116); Anion Gap 11 (7-16); Aspartate Amino Transferase 33 U/L (0-34); BUN/Creatinine Ratio 6 Ratio (12-20); Bilirubin,Total 2.0 mg/dL (0.3-1.2); Blood Urea Nitrogen 5 mg/dL (9-23); Calcium 8.1 mg/dL (8.3-10.6); Calcium (Corrected) 8.9 mg/dL (8.5-10.1); Carbon Dioxide 24.1 mMol/L (20.0-31.0); Chloride 105 mMol/L (98-107); Creatinine (Component) 0.8 mg/dL (0.6-1.3); Estimated Creatinine Clearance 86.6 mL/min (>60); Globulin 3.6 gm/dL (2.3-3.5); Glucose 81 mg/dL (74-106); Magnesium 2.1 mg/dL (1.6-2.6); Osmolality,Calculated 275 (275-295); Phosphorous 3.9 mg/dL (2.4-5.1); Potassium 3.5 mMol/L (3.4-5.1); Sodium 140 mMol/L (136-145); Total Protein 6.6 gm/dL (5.7-8.2); eGFR > 60 See Note
[2025-03-25] MEDS: BACLOFEN 10 MG TABLET 20 MG PO ×2 (08:13→21:09)
[2025-03-25] MEDS: cefTRIAXone/D5w 1gm IV premix 1 GM/50 ML BAG IV (08:14)
[2025-03-25] MEDS: IRON SUCROSE CPLX INJ 20 MG/ML VIAL 5 ML 200 MG IVP (10:47)
--- NOTE | 2025-03-25 15:40 | PD.IMPROG ---
Documentation for date of: 03/25/25 Subjective Subjective Interval history: Patient evaluated She underwent flexible sigmoidoscopy with banding of the internal hemorrhoids and total 3 bands were put in Upper endoscopy showed 1+ esophageal varices and gastritis and duodenitis Counseled the patient on the virtues of complete abstinence from alcohol Exam Vital Signs Temp Pulse Resp BP Pulse Ox O2 Del Method O2 Flow Rate 97.8 F 83 19 116/73 100 Room Air 3 03/25/25 11:38 03/25/25 11:38 03/25/25 11:38 03/25/25 11:38 03/25/25 11:38 03/25/25 11:38 03/25/25 04:00 Objective Labs 03/25/25 05:10 03/25/25 05:10 Labs: Laboratory Results - last 24 hr 03/25/25 05:10 WBC 4.0 RBC 3.18 L Hgb 7.6 L Hct 24.0 L MCV 76 L MCH 23.9 L MCHC 31.7 RDW Std Deviation 50.7 H Plt Count 158 Neut % (Auto) 60 Lymph % (Auto) 30 [place] % (Auto) 6 Eos % (Auto) 2 Baso % (Auto) 1 Neut # (Auto) 2.4 Lymph # (Auto) 1.2 [place] # (Auto) 0.2 Eos # (Auto) 0.1 Baso # (Auto) 0.0 Immature Gran # (Auto) 0.03 H Absolute Nucleated RBC 0.00 Immature Gran % 1 H Nucleated RBC % 0 Retic Count (auto) 2.1 H Absolute Retic 67.7 Immature Retic Fraction 33.4 H Retic Hgb Content CHr 23.2 L Sodium 140 Potassium 3.5 Chloride 105 Carbon Dioxide 24.1 Anion Gap 11 BUN 5 L Creatinine 0.8 Estim Creat Clear Calc 86.6 eGFR > 60 BUN/Creatinine Ratio 6 L Glucose 81 Calculated Osmolality 275 Calcium 8.1 L Corrected Calcium 8.9 Phosphorus 3.9 Magnesium 2.1 Total Bilirubin 2.0 H D AST 33 ALT 7 L Alkaline Phosphatase 74 Total Protein 6.6 Albumin 3.0 L Globulin 3.6 H Albumin/Globulin Ratio 0.8 L Impressions Impression: Gastritis Duodenitis 1+ esophageal varices not large enough for band ligation Large internal hemorrhoids at the anorectal junction requiring band ligation in total 3 bands were put in Given discharge instructions Assessment & Plan A&P Narrative # Hematochezia # iron deficiency anemia Plan Fleet enemas in the morning on-call to endoscopy Will reband the internal hemorrhoids Since patient has been taking ibuprofen for a toothache She might have a mixed picture with dropping her hemoglobin to 5.5 g and hematocrit of 18.8 Will also consent for upper endoscopy at the same time Consent obtained for both flexible sigmoidoscopy with banding of the internal hemorrhoids and fiberoptic esophagogastroduodenoscopy with possible biopsy possible therapeutic intervention under intravenous moderate sedation Thank you for the opportunity to participate in the care of this patient Start the patient on iron supplement along with vitamin C Time Spent With Patient Time: Total time spent is greater than 50% in coordination of care (as documented) at patient's floor/unit and/or counseling patient:
[2025-03-25] MEDS: MG HYD/AL HYD/SIME (Maalox Reg) SUSP 30 ML UDC 15 ML PO (17:59)
--- NOTE | 2025-03-25 18:02 | ESPR_ITS ---
<Statement entered by Armaan Rolle MD - 03/26/25 15:15> Patient seen and examined at bedside. I discussed and supervised with the internal audit manager physician who took care of this patient. I personally saw and examined the patient. I agree with most of the assessment and plan. Plan of care discussed with attending Dr. Cuevas. Armaan Rolle MD PGY-2 Documentation for date of: 03/25/25 Subjective Subjective Interval history: Patient was seen and examined at bedside. No acute events took place overnight. Patient had been having anxiety keeping her from sleep overnight and was given lorazepam 0.5 mg x 2. Diarrhea resolved, bowel movements are lightly colored and has had 2-3 of which. No blood noted in stool. Denies fevers admits to chills. Patient also mentioned of visual and auditory hallucination earlier this morning. Patient states that blood had been found over her stool and on the wipe and not intermixed with the formed content before coming to hospital. Continues to have RUQ pain, intermittently for two week. Lidocaine patches helped before and will be provided to her inpatient. Exam Vital Signs Temp Pulse Resp BP Pulse Ox O2 Del Method O2 Flow Rate 97.8 F 83 19 116/73 100 Room Air 3 03/25/25 11:38 03/25/25 11:38 03/25/25 11:38 03/25/25 11:38 03/25/25 11:38 03/25/25 11:38 03/25/25 04:00 Narrative Exam General: Awake. HEENT: Normocephalic, atraumatic, mucous membranes moist. healed rash from acne with erosions on forehead Heart: Regular rate and rhythm, no murmurs. Lungs: Clear to auscultation with no wheezing or crackles. Abdomen: Soft, nondistended, tenderness in right upper abdomen, positive bowel sounds. ?No guarding or rebound tenderness. Neurologic: Alert and oriented x3, no gross neurological deficit, and patient able to move all 4 extremities. Extremities: No edema. Skin: No rash or ecchymoses. Objective Labs 03/26/25 05:15 03/26/25 05:15 Labs: Laboratory Results - last 24 hr 03/25/25 05:10 WBC 4.0 RBC 3.18 L Hgb 7.6 L Hct 24.0 L MCV 76 L MCH 23.9 L MCHC 31.7 RDW Std Deviation 50.7 H Plt Count 158 Neut % (Auto) 60 Lymph % (Auto) 30 [place] % (Auto) 6 Eos % (Auto) 2 Baso % (Auto) 1 Neut # (Auto) 2.4 Lymph # (Auto) 1.2 [place] # (Auto) 0.2 Eos # (Auto) 0.1 Baso # (Auto) 0.0 Immature Gran # (Auto) 0.03 H Absolute Nucleated RBC 0.00 Immature Gran % 1 H Nucleated RBC % 0 Retic Count (auto) 2.1 H Absolute Retic 67.7 Immature Retic Fraction 33.4 H Retic Hgb Content CHr 23.2 L Sodium 140 Potassium 3.5 Chloride 105 Carbon Dioxide 24.1 Anion Gap 11 BUN 5 L Creatinine 0.8 Estim Creat Clear Calc 86.6 eGFR > 60 BUN/Creatinine Ratio 6 L Glucose 81 Calculated Osmolality 275 Calcium 8.1 L Corrected Calcium 8.9 Phosphorus 3.9 Magnesium 2.1 Total Bilirubin 2.0 H D AST 33 ALT 7 L Alkaline Phosphatase 74 Total Protein 6.6 Albumin 3.0 L Globulin 3.6 H Albumin/Globulin Ratio 0.8 L Quality Measures Quality Measures none Assessment & Plan Assessment Current Active Medications: Generic Name Dose Route Start Last Admin Trade Name Freq PRN Reason Stop Dose Admin Acetaminophen 500 mg 03/23/25 16:08 Acetaminophen 325 Mg Tablet PO 04/22/25 16:07 Q6H PRN Fever >100.4 or pain 1-3/10 Hydrocodone Bitart/Acetaminophen 1 tab 03/23/25 16:13 03/25/25 13:31 Hydrocodone/Apap 5/325 Tablet PO 03/28/25 16:12 1 tab Q4HR PRN Administration PAIN SCALE 4-6 (Moderate Al Hydrox/Mg Hydrox/Simethicone 15 ml 03/25/25 17:52 03/25/25 17:59 Mg Hyd/Al Hyd/Manju (Maalox Reg) Susp 30 Ml Udc PO 04/24/25 17:51 15 ml QID PRN Administration Heartburn Baclofen 20 mg 03/23/25 21:00 03/25/25 08:13 Baclofen 10 Mg Tablet PO 04/22/25 20:59 20 mg BID BRIANA Administration Ceftriaxone Sodium/Dextrose 1 gm in 50 mls @ 100 mls/hr 03/23/25 16:40 03/25/25 08:14 Rocephin/D5w 1gm Iv Premix IV 03/30/25 16:39 100 mls/hr QDAY BRIANA Administration Lidocaine 1 patch 03/24/25 09:58 03/24/25 10:35 Lidocaine 5% 1 Patch TOP 04/23/25 09:57 1 patch UD PRN Administration PAIN Lorazepam 2 mg 03/25/25 10:17 Lorazepam 0.5 Mg Tablet PO 03/28/25 17:40 Q4HR PRN CIWA SCORE 15-19 Lorazepam 0.5 mg 03/25/25 10:18 Lorazepam 0.5 Mg Tablet PO 03/28/25 17:40 Q4HR PRN CIWA Score 5-9 Lorazepam 1 mg 03/25/25 10:18 Lorazepam 0.5 Mg Tablet PO 03/28/25 17:40 Q4HR PRN CIWA SCORE 10-14 Metronidazole 500 mg 03/23/25 21:00 03/25/25 08:13 Metronidazole 250 Mg Tablet PO 03/30/25 20:59 500 mg BID BRIANA Administration Ondansetron HCl 4 mg 03/23/25 16:08 03/24/25 13:43 Ondansetron Inj 2 Mg/Ml Inj 2 Ml IVP 04/22/25 16:07 4 mg Q6H PRN Administration NAUSEA OR VOMITING Protocol Pantoprazole Sodium 40 mg 03/23/25 21:00 03/25/25 08:13 Pantoprazole Inj 40 Mg Vial IVP 04/22/25 20:59 40 mg BID BRIANA Administration Plan A 37-year-old female with significant past medical history of upper GI bleed secondary to H. pylori, gastritis, anemia post blood transfusions secondary to menorrhagia, alcohol use disorder, alcoholic liver disease, steatohepatitis presented to the hospital for follow up after being instructed by her PCP to go to hospital for low Hgb level. #Symptomatic anemia 2/2 acute blood loss #Microcytic Anemia #Iron Deficiency Anemia #Internal hemorrhoids, s/p banding #Lower GI bleed #Bloody diarrhea Recent weakness, fatigue, inability to complete responsibilities at work. Noted bright red blood per rectum when wiping, but also diarrhea that appeared red. Patient also reports acute diarrhea, and subjective fevers. Hgb 5.5, and patient received 2u pRBC, after blood type and screen. MCV 74, patient on iron pills. FOBT negative. iron <5, iron sat 1%L, unsat iron binding 323H, ferretin 5L. Hgb 6.5, patient will receive 1u pRBC EGD: Grade 1 varices in the lower third of the esophagus, gastric?antrem inflammation ((hypertensive portal gastropathy), and mild duodenitis. Sigmoidoscopy: Grade III hemorrhoids, 3 of which were banded.?No post-procedural bleeding noted. Plan: ? GI, Dr. Wiggins, consulted, appreciate recs ? Ceftriaxone IV 1 g daily and Flagyl p.o. 500 mg twice daily (03/23 - ) #Steatohepatitis versus primary hepatocellular disease #Coagulopathy US RUQ (10/11) showed moderate hepatomegaly, fatty liver, suspicious of primary hepatocellular disease. PT 16, INR 1.6, and aPTT 28.5, albumin 3.3. AST 48. -continue to monitor coagulation factors as a measure of liver synthetic function. #Alcohol use disorder CIWA 6-7 on 03/25 - CIWA protocol with Ativan 0.5, 1, and 2 mg for increasingly higher ranges on CIWA assessment. #UTI, resolved #Cervicitis Patient admits to urinary frequency, denies dysuria. Suprapubic tenderness noted on exam. UA positive for turbidity, positive leukocyte esterase, and 504 U WBC. Pt states pap smear performed by her OBGYN showed infection. UDS positive for opiates and marijuana. U ctx negative Plan: -Flagyl 500mg bid (03/23- ) #Dental Pulp Necrosis Patient has been receiving outpatient dental care for root canal procedure. According to patient, has completed 2d course of 7-10d amoxicillin prescription Health Maintenance: Disposition: Med telemetry Diet: PUD PPx DVT: SCD PPx GI: IV Protonix 40 mg twice daily Code Status: Full This case was discussed with my attending physician, Dr. Cuevas, and senior resident Darling Vivar. Enrico Mack, DO PGY I Attending Provider Attestation/Addendum I have seen and examined the patient. I was physically present for the pierre portions of the services provided including history, physical exam, diagnosis, treatment plans and orders. I agree with assessment and plan of care as documented by residents. Even though this this note was carefully revised there may still be minor errors in sack sewer machine due to voice recognition software. La Cuevas MD
[2025-03-25] MEDS: LIDOCAINE 5% 1 PATCH TOP (21:17)
[2025-03-26] VITALS: BP 106/63; PULSE 81; RESP 18; TEMP 36.1; O2SAT 100
[2025-03-26] MEDS: HYDROcodone/APAP 5/325 TABLET 1 TAB PO ×3 (00:24→10:15)
[2025-03-26 04:00] VITALS: BP 121/73; PULSE 73; RESP 18; TEMP 36.3; O2SAT 100
[2025-03-26 06:40] LABS: Basophils # (Auto) 0.1 Thou/mm3 (0.0-0.2); Basophils % (Auto) 1 % (0-2.5); Eosinophils # (Auto) 0.1 Thou/mm3 (0.0-0.5); Eosinophils % (Auto) 2 % (0-10); Hematocrit 26.4 % (36.0-46.0); Hemoglobin 8.3 g/dL (12.0-16.0); Immature Granulocytes Auto 0.01 Thou/mm3 (0.00-0.00); Lymphocytes # (Auto) 1.4 Thou/mm3 (1.0-4.8); Lymphocytes % (Auto) 28 % (10-50); Mean Corpuscular HGB Conc 31.4 g/dl (31.0-37.0); Mean Corpuscular Hemoglobin 24.1 pg (25.0-35.0); Mean Corpuscular Volume 77 fL (80-100); Monocytes # (Auto) 0.3 Thou/mm3 (0.0-0.8); Monocytes % (Auto) 6 % (0-12); Neutrophils # (Auto) 3.1 Thou/mm3 (1.8-7.7); Neutrophils % (Auto) 63 % (37-80); Nucleated Red Blood Cell # 0.00 Thou/mm3 (0.00-0.00); Nucleated Red Blood Cell % 0 /100 WBC (0); Platelet Count 191 Thou/mm3 (140-440); RDW Standard Deviation 51.2 fL (36.4-46.3); Red Blood Count 3.45 Miln/mm3 (4.00-5.20); White Blood Count 4.9 Thou/mm3 (3.6-11.0)
[2025-03-26 06:48] LABS: Alanine Aminotransferase 9 U/L (10-49); Albumin, Serum 3.3 gm/dL (3.5-5.0); Albumin/Globulin Ratio 0.8 (1.2-2.2); Alkaline Phosphatase 97 U/L (46-116); Anion Gap 11 (7-16); Aspartate Amino Transferase < 8 U/L (0-34); BUN/Creatinine Ratio 6 Ratio (12-20); Bilirubin,Total 0.9 mg/dL (0.3-1.2); Blood Urea Nitrogen < 5 mg/dL (9-23); Calcium 8.8 mg/dL (8.3-10.6); Calcium (Corrected) 9.4 mg/dL (8.5-10.1); Carbon Dioxide 24.0 mMol/L (20.0-31.0); Chloride 106 mMol/L (98-107); Creatinine (Component) 0.8 mg/dL (0.6-1.3); Estimated Creatinine Clearance 86.6 mL/min (>60); Globulin 4.1 gm/dL (2.3-3.5); Glucose 87 mg/dL (74-106); Magnesium 2.1 mg/dL (1.6-2.6); Osmolality,Calculated 277 (275-295); Phosphorous 3.1 mg/dL (2.4-5.1); Potassium 3.7 mMol/L (3.4-5.1); Sodium 141 mMol/L (136-145); Total Protein 7.4 gm/dL (5.7-8.2); eGFR > 60 See Note
[2025-03-26 08:00] VITALS: BP 104/71; PULSE 54; PULSE 84; RESP 18; TEMP 36.2; O2SAT 99
[2025-03-26] MEDS: BACLOFEN 10 MG TABLET 20 MG PO (08:39)
[2025-03-26] MEDS: cefTRIAXone/D5w 1gm IV premix 1 GM/50 ML BAG IV (08:39)
--- NOTE | 2025-03-26 09:05 | PCS.ST ---
Follow up note: On CWAL Protocol. Pt will return home upon dc.
[2025-03-26 11:46] VITALS: BP 100/69; PULSE 95; RESP 18; TEMP 36.2; O2SAT 97
--- NOTE | 2025-03-26 12:07 | PC.SS ---
SS was informed by bedside nurseJannet pt is requesting transportation. SS met with pt confirm demographic information is correct on her facesheet. Per pt, she is unable to pay for transportation.
--- NOTE | 2025-03-26 13:31 | ESDS_ITS ---
<Statement entered by Luma Fall DO - 03/26/25 18:39> I, Luma Fall DO, attest that I was physically present for the pierre portions of the service and evaluated the patient with the resident and I reviewed and discussed the case with the resident and agree with the resident's findings and plans of care as documented above <Statement entered by Armaan Rolle MD - 03/26/25 17:52> Patient seen and examined at bedside. I discussed and supervised with the agriculture intern physician who took care of this patient. I personally saw and examined the patient. I agree with most of the assessment and plan. Plan of care discussed with attending Dr. Fall. Armaan Rolle MD PGY-2 Planned Discharge Date 03/26/25 DS: Providers Provider Date of admission: 03/23/25 16:29 Primary care physician: Physician No Primary/Family Admitting Provider: La Cuevas MD Attending Provider on Admission: La Cuevas MD Consults: 03/23/25 15:05 Consult to Gastroenterology Stat Comment: Consulting Provider: Bianca Wiggins 03/24/25 01:41 Health [facility] Referral - Nutrition Routine Comment: Positive screening for nutrition needs. [facility] Referral - Utilities Routine Comment: Positive screening for utility assistance needs. Attending Provider on DC: Enrico Mack DO Discharging Provider: Enrico Mack DO DS: Diagnosis Problem List Completed Was Problem List Reviewed/Reconciled?: Yes Hospital Course Hospital Course Hospital course: 37-year-old female with past medical history of upper GI bleed secondary to H. pylori gastritis, anemia, menorrhagia, alcohol use disorder, alcoholic liver disease presented on 03/23/2025 for follow-up after being instructed by her PCP to go to hospital for low hemoglobin level. Patient also reported diarrhea for 1 week, and blood on the wipe that she used to clean herself after bowel movements. Patient admitted for the workup of GI bleed and blood transfusion. At presentation Hgb 5.5, and patient was administered 2 units of PRBC. UA was positive for leukocyte esterase and 504 urine WBC. Through the course of her hospital stay, patient's diarrhea improved, and patient remained afebrile. 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 Follow-up sigmoidoscopy on the same day showed grade 3 hemorrhoids, 3 of which were banded. No postprocedural bleeding was noted. Patient was treated with ceftriaxone IV 1 g daily and Flagyl 500 mg twice daily orally since the day of her presentation for empiric coverage of abdominal infection. Patient had also noted abnormal Pap smear findings with concerns of pelvic inflammatory disease for which she had been prescribed metronidazole a few weeks ago. Urine culture unremarkable. As patient had alcohol use disorder, she was initiated on CIWA protocol. On 03/25 patient had anxiety, insomnia, and hand tremors with CIWA score 6-7 which improved remarkably by the next day, without need for short acting benzodiazepines. Iron panel came back with low iron saturation and ferritin 5 low, and elevated unsaturated iron binding, consistent with iron deficiency anemia. patient started on IVP Venofer 200 mg daily with plans to discharge on oral iron. By the time of discharge, patient's hemoglobin had stayed stable 8.3, patient asymptomatic. At the time of discharge, patient is medically stable and deemed safe to return to his/her pre vious state of living. Admission diagnosis: #Symptomatic anemia secondary to acute blood loss #Microcytic anemia #Iron deficiency anemia #Internal hemorrhoids, status post banding #Lower GI bleed #Bloody diarrhea #Steatohepatitis versus primary hepatocellular disease #Coagulopathy #Alcohol use disorder #UTI, resolved #Cervicitis #Dental pulp necrosis Discharge instructions: You have been started on the following medications: - Flagyl 500 mg, once tonight then twice daily for 1 more days - Librium 25 mg, take as needed for withdrawal symptoms, up to 3 times daily, 8 pills MAX The following medication has been STOPPED: - Ibuprofen, Augmentin Please continue taking all other medications as previously prescribed. Please follow up with your primary doctor in 7-10 days If you do not have a primary, please come to [facility]: [address], [place] [address] Please seek follow up care for your anemia. Return to the ED if you develop new or worsening symptoms. This case was discussed with my attending physician, Dr. Fall, and senior resident, Dr Rolle. Enrico Mack, PGY I Status at Discharge Cognitive/behavioral status at discharge: Stable Functional status at discharge: independent ambulation Overall status at discharge: patient is back to baseline Time Spent with Patient Time attestation: Total time spent providing and/or coordinating discharge services: More than 50% of the patient's total hospital stay Time spent: Greater than 30 minutes Exam Vital Signs Temp Pulse Resp BP Pulse Ox O2 Del Method O2 Flow Rate 97.1 F 95 18 100/69 97 Room Air 3 03/26/25 11:46 03/26/25 11:46 03/26/25 11:46 03/26/25 11:46 03/26/25 11:46 03/26/25 11:46 03/26/25 04:00 Narrative Exam General: Awake. HEENT: Normocephalic, atraumatic, mucous membranes moist. healed rash from acne with erosions on forehead Heart: Regular rate and rhythm, no murmurs. Lungs: Clear to auscultation with no wheezing or crackles. Abdomen: Soft, nondistended, tenderness in right upper abdomen, positive bowel sounds. ?No guarding or rebound tenderness. Neurologic: Alert and oriented x3, no gross neurological deficit, and patient able to move all 4 extremities. Extremities: No edema. Skin: No rash or ecchymoses. Discharge Plan Plan Patient Disposition: HOME (Self Care) Patient condition on transfer: Stable Care Plan Goals: You have been started on the following medications: - Flagyl 500 mg, once tonight then twice daily for 1 more days - Librium 25 mg, take as needed for withdrawal symptoms, up to 3 times daily, 8 pills MAX The following medication has been STOPPED: - Ibuprofen, Augmentin Please continue taking all other medications as previously prescribed. Please follow up with your primary doctor in 7-10 days If you do not have a primary, please come to [facility]: [address], [place] [address] Please seek follow up care for your anemia. Return to the ED if you develop new or worsening symptoms. Prescriptions/Referrals Prescriptions/Med Rec: New chlordiazepoxide HCl 25 mg capsule 25 mg PO TID PRN (Reason: alcohol withdrawal) Qty: 8 0RF Continued baclofen 20 mg tablet 20 mg PO BID PRN (Reason: Muscle Spasms) 30 Days Qty: 60 1RF lidocaine [RectaSmoothe] 5 % Cream 1 applic top QDAY PRN (Reason: hemorrhoids) 30 Days Qty: 1 3RF lidocaine 5 % Adhesive Patch,Medicated 1 patch top QDAY PRN (Reason: abdominal pain) 30 Days Qty: 30 3RF pantoprazole 40 mg tablet,delayed release (DR/EC) 40 mg PO QDAY 60 Days Qty: 60 1RF Patient Comments: prescribed but haven't been taking , but should. Taking tums instead. ferrous sulfate [iron] 325 mg (65 mg iron) Tablet 325 mg PO Q48H 30 Days Qty: 60 3RF vitamin B12 1 tab PO DAILY Rx Instructions: if pt remembers to take. over the counter. magnesium 1 tab PO DAILY Rx Instructions: if pt remembers to take. over the counter. calcium 1 tab PO BID Rx Instructions: oover the counter. pt takes as she remembers tot take. melatonin 12 mg tablet 12 mg PO HS PRN (Reason: sleep) Patient Comments: over the counter Rx Instructions: over the counter. haven't taken lately due to low hemoglobin, afraid might not wake up. Tums 2 tab PO TID Rx Instructions: 2 tabs after eating lunch or dinner, another 1 tab an hour after. another 1 tab when I wake up while I'm sleeping. [id number] [Preparation H Maximum Strength] 1 applic [place] QID PRN (Reason: rectal discomfort) metronidazole 500 mg tablet 500 mg PO BID Qty: 3 0RF Patient Comments: TAKE 1 TABLET BY MOUTH TWICE A DAY Rx Instructions: One tonight, then twice daily for 2 days Discontinued melatonin 1 mg tablet 0.5 mg PO HS PRN (Reason: sleep) Qty: 15 3RF Hemorrhoidal(PE-min oil-gwendolyn) 0.25-14-74.9 % ointment 1 applic [place] QDAY PRN (Reason: hemorrhoids) Qty: 57 3RF propranolol 10 mg Tablet 10 mg PO BID Qty: 60 1RF ibuprofen 800 mg tablet 400 mg PO TID PRN (Reason: pain) Patient Comments: 1 TABLET WITH FOOD OR MILK NEEDED ORALLY 3 TIMES A DAY Rx Instructions: only takes 400mg instead of 800mg, and only takes at night. only took 3 nights in a row. amoxicillin-pot clavulanate 875-125 mg tablet 1 tab PO Q12H Patient Comments: TAKE 1 TABLET BY MOUTH EVERY 12 HOURS Rx Instructions: just started taking. Referrals: [facility] [Outside] No Primary/Family,Physician [Primary Care Provider] Patient/Caregiver Discharge Instructions Discharge Activity: activity as tolerated Education Materials: Anemia, Treating Hemorrhoids: Self-Care, Understanding Alcoholism, Alcohol Addiction, Recovering from Addiction, Treating Hemorrhoids: Removal, Anemia Iron Deficiency Ch, ED Anemia, Iron-Deficiency (Adult) Print Language: Nigerian Stand Alone Forms: Vee Award Info., Patient Portal Info Letter Discharge Order Discharge Orders: Discharge (Routine); Ordered 03/26/25 Ordered By: Armaan Rolle Quality Discharge Quality Measures VTE prophylaxis
== END 2025-03-26 12:18 | disposition home or self-care (01) | DRG 226 ==
LOC: SERX 15:16 → SERHOLD 16:32 → S3SX 17:47
PROVIDERS: Nurse Practitioner Primary Care; Specialist; Admitting Provider Student in an Organized Health Care Education/Training Program; Emergency Provider Emergency Medicine; Visit Provider Student in an Organized Health Care Education/Training Program
PROC: 06LY8CC Occlusion of Hemorrhoidal Plexus with Extraluminal Device, Via Natural or Artificial Opening Endoscopic (ICD-10-PCS; CPT 43239; principal; 2025-03-24 16:30)
PROC: 0DJD8ZZ Inspection of Lower Intestinal Tract, Via Natural or Artificial Opening Endoscopic (ICD-10-PCS; CPT 45330; 2025-03-24 16:30)
DX: K64.2 Third degree hemorrhoids (principal); D62 Acute posthemorrhagic anemia; D68.9 Coagulation defect, unspecified; F10.10 Alcohol abuse, uncomplicated; K70.9 Alcoholic liver disease, unspecified; N39.0 Urinary tract infection, site not specified; N72 Inflammatory disease of cervix uteri; K04.1 Necrosis of pulp; E83.42 Hypomagnesemia; K76.6 Portal hypertension; K31.89 Other diseases of stomach and duodenum; K75.81 Nonalcoholic steatohepatitis (NASH); I85.00 Esophageal varices without bleeding; K29.70 Gastritis, unspecified, without bleeding; K29.80 Duodenitis without bleeding; F41.9 Anxiety disorder, unspecified; G47.00 Insomnia, unspecified; R25.1 Tremor, unspecified; Z87.19 Personal history of other diseases of the digestive system; Z90.49 Acquired absence of other specified parts of digestive tract; Z79.899 Other long term (current) drug therapy
CPT/HCPCS: 36415; 71045; 80053; 80061; 80307; 82270; 82728; 83540; 83550; 83735; 84100; 84443; 84703; 85025; 85046; 85610; 85730; 86850; 86900; 86901; 86921; 86922; 87086; 87205; 96365; 96375; 99283; A4649; J0696; J1200; J1756; J2250; J2405; J2470; J3010; J3475; J3490; P9016; A9270